=== PATIENT | male | born 1940 | race Caucasian/White ===

== ENCOUNTER 2024-03-05 22:19 | Emergency (ER) | payer MEDICARE, BC, SELFPAY ==
--- NOTE | ~2024-03-05 | XR_ITS ---
EXAM: XR elbow RT min 3V DATE: 03/05/2024 22:41 HISTORY: injury . COMPARISON: None available. FINDINGS: Normal mineralization. No fracture or dislocation. No lytic or blastic lesion. Mild degene rative change at the elbow joint. Enthesopathy at the medial and lateral epicondyles, olecranon, and biceps tuberosity. No erosion or periosteal change. Soft tissues within normal limits. IMPRESSION: No acute osseous finding in the right elbow. Reviewed, dictated and finalized at location K.
--- NOTE | ~2024-03-05 | CT_ITS ---
CT cervical spine wo con Ordering provider: Aminta Edmond APRN History: . fall . Comparison: March 06, 2024 Technique: CT of the cervical spine was performed without contrast. Sagittal and coronal reformatted images were also obtained and reviewed. Automated exposure control and iterative reconstruction margaret hnique were employed. The dose-length product was 681.00 mGy-cm. FINDINGS: VERTEBRAE: No subluxation or acute fracture. The occipital condyles are intact. DISH changes seen an teriorly. DISC SPACES: Normal. Multilevel facet joint disease is seen. Multilevel uncovertebral joint osteoarthritic changes. Multil evel intervertebral foraminal narrowing. PARASPINOUS SOFT TISSUES: Bilateral carotid calcifications. IMPRESSION: No acute osseous abnormality cervical spine. Reviewed, dictated and finalized at location A.
--- NOTE | ~2024-03-05 | CT_ITS ---
CT brain wo con Ordering provider: Aminta Edmond APRN History: 84 years Male with . fell, hit head on counter . Comparison: None. Technique: CT of the head without contrast. Radiation reduction technique utilized.The dose-length product was 681 mGy-cm FINDINGS: BRAIN PARENCHYMA AND CSF SPACES: Mild leukoaraiosis and diffuse cortical atrophy. Mild atheromatous d isease. No midline shift, mass effect or hemorrhage. The brain parenchyma and CSF spaces are otherwi se normal. VISUALIZED PARANASAL SINUSES: Bilateral maxillary sinus. MASTOIDS: Well aerated. BONES: The bones appear intact. SOFT TISSUES: Visualized nasopharynx is normal. Small frontal scalp hematoma. Otherwise, Superficial soft tissues are normal. IMPRESSION: No acute intracranial findings. Reviewed, dictated and finalized at location A.
--- NOTE | ~2024-03-05 | CT_ITS ---
CT lumbar spine wo con Ordering provider: Aminta Edmond APRN History: 84 years Male with . fall . Comparison: None. Technique: CT lumbar spine without contrast. Automated exposure control and iterative reconstruction technique were employed. The dose-length product was 1124.10 mGy-cm. FINDINGS: VERTEBRAE: Normal height and alignment. No subluxation or visible acute fracture. Degenerative change s with anterior marginal osteophytes. DISC SPACES: Well maintained. Multilevel facet joint disease. T12-L1: No stenosis. L1-L2: No stenosis. L2-L3: No stenosis. L3-L4: No stenosis. L4-L5: No stenosis. Diffuse disc bulge with bilateral narrowing of the foramina and the root janeth arturo. L5-S1: No stenosis. Diffuse disc bulge with bilateral narrowing of the foramina or compression. PARASPINOUS SOFT TISSUES: Mild atheromatous disease of the abdominal aorta. Prominent adrenal glands. IMPRESSION: No acute osseous abnormality. Reviewed, dictated and finalized at location A.
--- NOTE | ~2024-03-05 | CT_ITS ---
CT pelvis wo con Ordering provider: Aminta Edmond APRN History: . fall . Comparison: None. Technique: CT pelvis without oral and IV contrast. . Automated exposure control and iterative recons truction technique were employed. The dose-length product was 495.69 mGy-cm. Findings: BONES: No pelvic fracture or hip dislocation. Fusion of the symphysis pubis and right sacroiliac join ts is noted. Bilateral sacroiliitis is seen. Age appropriate degenerative changes of the visualized l ower lumbar spine. Bilateral hip arthroplasty. SUPERFICIAL SOFT TISSUES: Normal. PELVIC ORGANS: The bladder is normal. VISUALIZED BOWEL AND MESENTERY: Normal. No free air or free fluid. No lymphadenopathy. Fecal material loaded in the colon suggestive of constipation. RETROPERITONEUM: Mild atheromatous disease. IMPRESSION: No acute osseous abnormality. Bilateral hip arthroplasty. Reviewed, dictated and finalized at location A.
[2024-03-05 22:22] VITALS: BP 150/61; PULSE 63; RESP 12; TEMP 37; O2SAT 97
[2024-03-05] MEDS: TETANUS,DIPHTHERIA,AC PERTUSSIS ADULT (0.5 ML) BOOSTRIX IM (22:28)
[2024-03-05 23:13] VITALS: BP 142/78; PULSE 61; RESP 14; O2SAT 98
--- NOTE | 2024-03-06 00:33 | ECG_ITS ---
Test Date: 2024-03-06 02:10:49 Measurements Intervals [place] Rate: 61 P: 64 WA: 184 QRS: 6 QRSD: 101 T: 135 QT: 428 QTc: 431 Interpretive Statements SINUS RHYTHM CONSIDER ANTERIOR INFARCT, AGE INDETERMINATE CONSIDER INFERIOR INFARCT, AGE INDETERMINATE ST-T WAVE ABNORMALITY IN LAT/HIGH LAT LEADS- CONSIDER ISCHEMIA BASELINE ARTIFACT- I, III, AVR, AVL ABNORMAL ECG No previous ECG available for comparison Electronically Signed On 03-06-2024 05:26:25 CDT by Jacques Mclean D.O.
--- NOTE | 2024-03-06 00:35 | ED_ITS ---
HPI - Fall General Chief Complaint: Fall <Aminta Edmond APRN - Last Filed: 03/06/24 02:52> Stated Complaint: GLF, RUE SKIN TEAR <Aminta Edmond APRN - Last Filed: 03/06/24 02:52> Time Seen by Provider: 03/05/24 22:22 <Aminta Edmond APRN - Last Filed: 03/06/24 02:52> History of Present Illness HPI Narrative: Patient is an 84-year-old male who was ready to be discharged to EMS that he got without assistance and fell. He was found on the ground by a nurse after hearing a yell out from the patient and supplies hitting the floor. Patient is A&O times 1-2 at baseline, and has no neurological changes after the fall, but he does endorse hitting the left side of his head. He had presents to the ER earlier in the day due to a fall where he injured his right arm. Patient denies chest pain, shortness of breath, but endorses pain on the left side of his head where he hit the counter. <Aminta Edmond APRN - Last Filed: 03/06/24 02:52> Patient is an 84-year-old male who sent here from [facility] after he was witnessed to have fallen from toilet and landed on his right side, per [facility] no loss of consciousness, head trauma. Slight skin tear R elb ow. <Tia Ha MD - Last Filed: 03/06/24 02:49> Related Data Allergies/Adverse Reactions: Allergies Allergy/AdvReac Type Severity Reaction Status Date / Time aspirin Allergy Unknown Verified 03/05/24 22:27 niacin Allergy Unknown Verified 03/05/24 22:27 <Aminta Edmond APRN - Last Filed: 03/06/24 02:52> Review of Systems Review of Systems: All systems reviewed & are unremarkable except as noted in HPI and below <Aminta Edmond APRN - Last Filed: 03/06/24 02:52> Exam Narrative: GENERAL: Distressed appearing, well-nourished, non-toxic. HEAD: Normocephalic, mild L temporal ecchymosis. NECK: Supple. No adenopathy, no masses. RESPIRATORY: Airway patent, respirations nonlabored. Clear to auscultation bilaterally, no rales, rhonchi, wheezing. CARDIOVASCULAR: Regular rate and rhythm without murmurs, rubs, or gallops. Peripheral pulses 2+ and equal bilaterally. ABDOMINAL: Soft, nontender, nondistended, no hepatosplenomegaly. Normoactive BS. MUSCULOSKELETAL: Moves all extremities. Strength/ROM intact without gross deformities. SKIN: Warm, dry, pallor. R upper extremity reddened, mild L temporal ecchymosis NEURO: A&O X1. Speech clear. No ataxic movements. <Aminta Edmond APRN - Last Filed: 03/06/24 02:52> GENERAL: Distressed appearing, well-nourished, non-toxic. HEAD: Normocephalic, mild L temporal ecchymosis. well-healing laceration to top of head NECK: Supple. No adenopathy, no masses. RESPIRATORY: Airway patent, respirations nonlabored. Clear to auscultation bilaterally, no rales, rhonchi, wheezing. CARDIOVASCULAR: Regular rate and rhythm without murmurs, rubs, or gallops. Peripheral pulses 2+ and equal bilaterally. ABDOMINAL: Soft, nontender, nondistended, no hepatosplenomegaly. Normoactive BS. MUSCULOSKELETAL: Moves all extremities. Strength/ROM intact without gross deformities. tiny skin tear right elbow SKIN: Warm, dry, pallor. R upper extremity reddened, mild L temporal ecchymosis, tiny skin tear right elbow NEURO: A&O X1. Speech clear. No ataxic movements. <Tia Ha MD - Last Filed: 03/06/24 02:49> Course Vital Signs Vital signs: Vital Signs Temperature 98.6 F 03/05/24 22:22 Pulse Rate 63 03/05/24 22:22 Respiratory Rate 12 03/05/24 22:22 Blood Pressure 150/61 H 03/05/24 22:22 Pulse Oximetry 97 03/05/24 22:22 Oxygen Delivery Room Air 03/05/24 22:22 Temperature 98.6 F 03/05/24 22:22 Pulse Rate 63 03/06/24 01:40 Respiratory Rate 12 03/06/24 01:40 Blood Pressure 143/54 H 03/06/24 01:40 Pulse Oximetry 97 03/06/24 01:40 Oxygen Delivery Room Air 03/05/24 22:22 <Aminta Edmond APRN - Last Filed: 03/06/24 02:52> Vital Signs Temperature 98.6 F 03/05/24 22:22 Pulse Rate 63 03/05/24 22:22 Respiratory Rate 12 03/05/24 22:22 Blood Pressure 150/61 H 03/05/24 22:22 Pulse Oximetry 97 03/05/24 22:22 Oxygen Delivery Room Air 03/05/24 22:22 Temperature 98.6 F 03/05/24 22:22 Pulse Rate 63 03/06/24 01:40 Respiratory Rate 12 03/06/24 01:40 Blood Pressure 143/54 H 03/06/24 01:40 Pulse Oximetry 97 03/06/24 01:40 Oxygen Delivery Room Air 03/05/24 22:22 <Tia Ha MD - Last Filed: 03/06/24 02:49> MDM - Fall MDM Narrative Medical decision making narrative: Patient is an 84-year-old male who was ready to be discharged to EMS that he got without assistance and fell. He was found on the ground by a nurse after hearing a yell out from the patient and supplies hitting the floor. Patient is A&O times 1-2 at baseline, and has no neurological changes after the fall, but he does endorse hitting the left side of his head. He had presents to the ER earlier in the day due to a fall where he injured his right arm. Patient denies chest pain, shortness of breath, but endorses pain on the left side of his head where he hit the counter. Upon examination patient appears pale. R upper extremity reddened, mild L temporal ecchymosis. No other abnormalities noted Patient reports he hit his head on the counter, so a CT scan of his head, cervical spine, lumbar spine, and pelvis will be performed. Patient's imaging results were all negative for acute findings. He will be discharged back to the [place] [facility] where he lives. <Aminta Edmond APRN - Last Filed: 03/06/24 02:52> Patient is an 84-year-old male presented here after witnessed fall with right elbow injury, was not witnessed to have any head injury. He is well-appearing here with a tiny skin tear on his right elbow that was cleaned and closed with Steri-Strips, tetanus updated. He was ready to be discharged to EMS that he got up without assistance and fell. He was found on the ground by a nurse after hearing a yell out from the patient and saw hitting the floor. Patient is A&O times 1-2 at baseline, and has no neurological changes after the fall, but he does endorse hitting the left side of his head. He had presents to the ER earlier in the day due to a fall where he injured his right arm. Patient denies chest pain, shortness of breath, but endorses pain on the left side of his head where he hit the counter. Upon examination patient appears pale. R upper extremity reddened, mild L temporal ecchymosis. No other abnormalities noted Patient reports he hit his head on the counter, so a CT scan of his head, cervical spine, lumbar spine, and pelvis will be performed. // imaging thankfully without any acute abnormality. Patient continues to be at his baseline and is trying to get up still, I do feel at this time he is stable for discharge back to his [place] [facility] with return precautions. <Tia Ha MD - Last Filed: 03/06/24 02:49> Differential Diagnosis Differential diagnosis: Likely syncope, concussion without loss of consciousness and other (hypoglycemia, hypotension, bradycardia) <Aminta Edmond APRN - Last Filed: 03/06/24 02:52> Discharge Plan Discharge Clinical Impression: Skin tear, Fall <Aminta Edmond APRN - Last Filed: 03/06/24 02:52> Patient Disposition: [facility] <Aminta Edmond APRN - Last Filed: 03/06/24 02:52> Condition: Stable <Aminta Edmond APRN - Last Filed: 03/06/24 02:52> Instructions: Antibiotic Form, Fall Prevention for Older Adults (ED), Skin Tear (ED) <Aminta Edmond APRN - Last Filed: 03/06/24 02:52> Additional Instructions: please follow-up with the primary care doctor, come back to the ER for any further issues. <Aminta Edmond APRN - Last Filed: 03/06/24 02:52> Follow-up/Referrals: Evgeny Boone MD [Primary Care Provider] - <Aminta Edmond APRN - Last Filed: 03/06/24 02:52>
[2024-03-06 01:40] VITALS: BP 143/54; PULSE 63; RESP 12; O2SAT 97
--- NOTE | 2024-03-06 03:08 | PC.NURSE ---
This RN, Yesenia RN, Dickson RN, [facility], [facility] performing ACLS protocol on another patient. Brianda RUSSELL was out at the nurses station to obtain a medication for the patient being coded in room 8 when she hear a noise from room 5. Upon assessment this pt in room 5 was laying on the ground. Pt was helped back into bed by [facility] and Brianda RUSSELL. EDP Aminta Mayito was notified immediately. At the time pt c/o L temporal pain. Pt's mental status did not change after the fall occurred. CT of brain, cervical spine, lumbar spine, and pelvis was ordered and all resulted negative. EKG was ordered and performed as well. Pt's person to notify in his chart, Tito Turner, was called and left a voice message explaining the incident along with a call back number. This information was also relayed to Edith at [facility]. Pt was discharged and transported back to [facility] via [facility].
== END 2024-03-06 03:25 ==
PROVIDERS: Emergency Provider Registered Nurse; PCP Anesthesiology Pain Medicine
DX: S51.011A Laceration without foreign body of right elbow, initial encounter (principal); S00.83XA Contusion of other part of head, initial encounter; Z23 Encounter for immunization; W18.11XA Fall from or off toilet without subsequent striking against object, initial encounter
CPT/HCPCS: 70450; 72125; 72131; 72192; 73080; 90471; 90715; 93005; 99284

== ENCOUNTER 2024-03-11 10:21 | Inpatient (IN) | payer MEDICARE, BC, SELFPAY ==
[2024-03-11] VITALS (38 sets, daily range): BP systolic 107–149; BP diastolic 40–69; PULSE 56–100; RESP 10–24; TEMP 36–36.6; O2SAT 90–100; BMI 23.2
--- NOTE | ~2024-03-11 | CT_ITS ---
CT brain wo con Ordering provider: Vika Cavazos PA-C History: 84 years Male with . fall . Comparison: None. Technique: CT of the head without contrast. Radiation reduction technique utilized. The dose-length product was 1059.33 mGy-cm. FINDINGS: BRAIN PARENCHYMA AND CSF SPACES: Mild leukoaraiosis and diffuse cortical atrophy. Mild atheromatous d isease. No midline shift, mass effect or hemorrhage. The brain parenchyma and CSF spaces are otherwi se normal. VISUALIZED PARANASAL SINUSES: Bilateral maxillary sinus MASTOIDS: Well aerated. BONES: The bones appear intact. SOFT TISSUES: Visualized nasopharynx is normal. Small frontal scalp hematoma otherwise, Superficial soft tissues are normal. IMPRESSION: No acute intracranial findings. Reviewed, dictated and finalized at location A.
--- NOTE | ~2024-03-11 | XR_ITS ---
XR chest 1V Ordering provider: Vika Cavazos PA-C History: 84 years Male with . fall . Comparison: None. FINDINGS: MEDIASTINUM: The cardiac silhouette is not enlarged. LUNGS: No effusions or pneumothorax. Opacification in the left lower lobe area. OTHER: No free air under the diaphragm. IMPRESSION: Opacification in the left lower lobe area suggestive of atelectasis versus pneumonia. Reviewed, dictated and finalized at location A. IMPRESSION: Opacification in the left lower lobe area suggestive of atelectasis versus pneu monia.
--- NOTE | ~2024-03-11 | CT_ITS ---
CT cervical spine wo con Ordering provider: Vika Cavazos PA-C History: . fall . Comparison: None. Technique: CT of the cervical spine was performed without contrast. Sagittal and coronal reformatted images were also obtained and reviewed. Automated exposure control and iterative reconstruction margaret hnique were employed. The dose-length product was 438.83 mGy-cm. FINDINGS: VERTEBRAE: No subluxation or acute fracture. The occipital condyles are intact. Prominent osteophytes seen anteriorly suggestive of DISH. DISC SPACES: Normal. Multilevel facet joint disease. Multilevel intervertebral foraminal narrowing. PARASPINOUS SOFT TISSUES: Bilateral carotid calcifications. IMPRESSION: No acute osseous abnormality cervical spine. Reviewed, dictated and finalized at location A.
--- NOTE | ~2024-03-11 | XR_ITS ---
SINGLE AP VIEW PELVIS Ordering provider: Vika Cavazos PA-C History: . PAIN AFTER FALL . Comparison: None. FINDINGS: BONES: No acute fracture or dislocation. HIP JOINT SPACES: Bilateral total hip arthroplasty. SACROILIAC JOINT SPACES/LUMBAR SPINE: The sacroiliac joint spaces shows left sacroiliitis. . Mild degenerative changes of the visualized lower lumbar spine. PUBIC SYMPHYSIS: Normal. SOFT TISSUES: Normal. IMPRESSION: No acute osseous abnormality pelvis. Bilateral total hip arthroplasty. Reviewed, dictated and finalized at location A.
--- NOTE | 2024-03-11 10:50 | ED.FALL ---
HPI - Fall General Chief Complaint: Fall Stated Complaint: Fall Time Seen by Provider: 03/11/24 10:26 Source: patient and EMS Mode of arrival: EMS Limitations: dementia History of Present Illness HPI Narrative: This is a 84 year old male that presents to the ER for a fall today. Reports he is currently in the memory care unit and they are trying to change him to the long-term side as he has been falling a lot. Patient has no complaints currently. Uncooperative with history and exam. Related Data Home Medications Medication Instructions Recorded Confirmed acetaminophen 500 mg tablet 500 mg PO TID PRN Pain 03/11/24 03/11/24 amlodipine 5 mg tablet 5 mg PO DAILY 03/11/24 03/11/24 divalproex 125 mg tablet,delayed 125 mg PO BID 03/11/24 03/11/24 release donepezil 10 mg tablet 10 mg PO DAILY 03/11/24 03/11/24 escitalopram oxalate 10 mg tablet 10 mg PO DAILY 03/11/24 03/11/24 furosemide 40 mg tablet 40 mg PO DAILY 03/11/24 03/11/24 levothyroxine 75 mcg tablet 75 mcg PO DAILY 03/11/24 03/11/24 loperamide 2 mg capsule 2 mg PO DAILY PRN Diarrhea 03/11/24 03/11/24 menthol 0.44 %-zinc oxide 20.6 % 1 applic topical BID PRN Rash 03/11/24 03/11/24 topical ointment (CalProtect) metolazone 2.5 mg tablet 2.5 mg PO DAILY 03/11/24 03/11/24 omeprazole 40 mg capsule,delayed 40 mg PO DAILY 03/11/24 03/11/24 release polyethylene glycol 3350 17 17 g PO DAILY PRN Constipation 03/11/24 03/11/24 gram/dose oral powder quetiapine 50 mg tablet 50 mg PO TID 03/11/24 03/11/24 tamsulosin 0.4 mg capsule 0.4 mg PO QHS 03/11/24 03/11/24 triamcinolone acetonide 0.1 % 1 applic topical BID 03/11/24 03/11/24 topical cream Allergies Allergy/AdvReac Type Severity Reaction Status Date / Time aspirin Allergy Unknown Verified 03/11/24 10:39 niacin Allergy Unknown Verified 03/11/24 10:39 Review of Systems Review of Systems: ROS unobtainable: Yes unobtainable due to medical condition PMFSH Past Medical History Medical History (Updated 03/12/24 @ 10:23 by Vika Cavazos PA-C) Bipolar disorder Cataracts, bilateral History of dementia History of hypertension History of hypothyroidism TIA (transient ischemic attack) Surgical History Surgical History (Updated 03/11/24 @ 17:23 by Vanessa Nelson, TAM) History of angioplasty (1993) History of total hip arthroplasty Social History Social History (Updated 03/11/24 @ 10:51 by Vika Cavazos PA-C) Smoking status: Never smoker Alcohol intake: former Substance use: never Spiritual care concerns: No Exam Narrative: GENERAL: Elderly, well-nourished, and in no acute distress. HEAD: Normocephalic, atraumatic. EYES: PERRLA and EOMI. ENT: Nares clear, no rhinorrhea or epistaxis. Mucous membranes moist. Oropharynx without tonsillar hypertrophy exudate or other lesions. Bilateral TMs pearly liz non-bulging NECK: Supple. No adenopathy or masses. CHEST: Clear to auscultation. No respiratory distress. No wheezes rales or rhonchi HEART: Regular rate and rhythm. No murmur heard. Normal peripheral pulses. ABDOMEN: Soft, nontender, nondistended, normal active bowel sounds. BACK: No midline spinal tenderness EXTREMITIES: Normal range of motion. No edema or obvious deformity. SKIN: Warm, dry, no rash. NEURO: No focal deficits. Alert and oriented x1. PSYCH: Normal mood and affect Course Course Emergency Course: Spoke about further inpatient management for hydration and IV antibiotics for pneumonia versus is discharged back to facility with oral antibiotics. Consultations Consultation #1: Spoke with hospitalist about patient and workup who accepts admission Date: 03/11/24 Vital Signs Vital signs: Vital Signs Temperature 97.9 F 03/11/24 10:26 Pulse Rate 62 03/11/24 10:26 Respiratory Rate 14 03/11/24 10:26 Blood Pressure 149/58 H 03/11/24 10:26 Pulse Oximetry 97 03/11/24 10:26 Oxygen Delivery Room Air 03/11/24 10:26 Temperature 97.5 F L 03/12/24
[2024-03-11 12:40] LABS: Basophils Absolute Auto 0.1 K/mm3 (0.0-0.1); Basophils Percent Auto 0.6 % (0.2-1.2); Eosinophils Absolute Auto 0.1 K/mm3 (0-0.3); Eosinophils Percent Auto 1.1 % (0-4.4); Hematocrit 39.8 % (42.0-52.0); Hemoglobin 13.2 g/dL (14.0-18.0); Immature Granulocyte Absolute 0.05 K/mm3 (0.00-0.031); Immature Granulocyte Percent A 0.6 % (0-0.5); Lymphocytes Absolute Auto 1.69 K/mm3 (0.9-3.2); Lymphocytes Percent Auto 19.8 % (18.3-44.2); Mean Corpuscular HGB Conc 33.2 g/dl (32-36); Mean Corpuscular Hemoglobin 32.1 pg (26-34); Mean Corpuscular Volume 96.8 fl (80-100); Mean Platelet Volume 9.7 fl (7.4-10.4); Monocytes Absolute Auto 0.8 K/mm3 (0.1-0.6); Neutrophils Absolute Auto 5.9 K/mm3 (1.3-6.7); Neutrophils Percent Auto 68.9 % (45.5-73.1); Platelet Count Result 240 k/mm3 (150-375); Red Blood Count 4.11 M/mm3 (4.6-6.20); Red Cell Distribution Width 13.9 % (11.5-14.5); White Blood Count 8.5 K/mm3 (4.5-10.0)
[2024-03-11 12:51] LABS: Alanine Aminotransferase 21 U/L (6-50); Albumin Level 4.1 g/dL (3.5-5.1); Alkaline Phosphatase 170 U/L (38-126); Aspartate Amino Transferase 30 U/L (17-59); Bilirubin,Total 0.5 mg/dL (0.2-1.3); Blood Urea Nitrogen 43 mg/dL (9-20); Calcium 8.6 mg/dL (8.4-10.2); Carbon Dioxide > 40 mmol/L (22-30); Chloride 96 mmol/L (98-107); Estimated CRCL calculation 29 ml/min; Estimated Glomerular Filt Rate 38; Glucose 113 mg/dL (65-110); Potassium 3.6 mmol/L (3.4-5.0); Sodium 141 mmol/L (137-145)
--- NOTE | 2024-03-11 13:49 | PM.IMHP ---
H&P: HPI History of Present Illness Date/Time: 03/11/24 13:49 Chief Complaint: Fall Narrative: 84 y/o M presents here with fall with PMH of dementia, bipolar disorder, TIA, HTN, and hypothyroidism. The patient presents here from [facility] via EMS for further evaluation of falls. HPI obtained through chart review and patient report. Per EMS, custodial staff reported the patient has been falling more recently. reports the falls have worsened over the last month. Estimates he falls a few times per week, with most at 2 times in one day. Most recent fall occurred today, patient does not remember fall and does not know details. skilled nursing staff reports concerns about his current placement in the memory care unit, believes he may need a penitentiary facility due to the frequency of falls. The patient has a history of dementia and is currently A&Ox1 (self, typically knows his and children but otherwise confused, considered final stages/advanced per ), currently unable to provide reliable history. also reports that he has had visual hallucinations for the last 2 weeks, historically hallucinates with UTIs. UA was done at his [place] but the results have not been reviewed yet per . No reported nausea, vomiting, diarrhea or constipation. Initial VS at presentation: 97.9? F, HR 62, RR 14, 149/58, and 97% on RA. ED workup showed: No leukocytosis, hemoglobin 13.2, CO2 greater than 40, creatinine 1.7 and GFR 38 (no previous available for comparison), glucose 113. Head CT showed no acute intracranial findings. CT C-spine showed no acute osseous abnormality of the cervical spine. CXR showed opacification the left lower lobe suggestive of atelectasis versus pneumonia. Pelvic XR showed no acute osseous abnormality and bilateral total hip arthroplasties. Review of Systems Review of Systems: ROS unobtainable: Yes unobtainable due to mental status (Limited due to severe dementia) [facility] Past Medical History Medical History (Updated 03/11/24 @ 17:23 by Vanessa Nelson APRN) Bipolar disorder Cataracts, bilateral History of dementia History of hypertension History of hypothyroidism TIA (transient ischemic attack) Surgical History Surgical History (Updated 03/11/24 @ 17:23 by Vanessa Nelson APRN) History of angioplasty (1993) History of total hip arthroplasty Social History Social History (Updated 03/11/24 @ 10:51 by Vika Cavazos PA-C) Smoking status: Never smoker Alcohol intake: former Substance use: never Spiritual care concerns: No Meds Home Medications and Allergies Home Medications Medication Instructions Recorded Confirmed Type acetaminophen 500 mg tablet 500 mg PO TID PRN Pain 03/11/24 03/11/24 History amlodipine 5 mg tablet 5 mg PO DAILY 03/11/24 03/11/24 History divalproex 125 mg tablet,delayed 125 mg PO BID 03/11/24 03/11/24 History release donepezil 10 mg tablet 10 mg PO DAILY 03/11/24 03/11/24 History escitalopram oxalate 10 mg tablet 10 mg PO DAILY 03/11/24 03/11/24 History furosemide 40 mg tablet 40 mg PO DAILY 03/11/24 03/11/24 History levothyroxine 75 mcg tablet 75 mcg PO DAILY 03/11/24 03/11/24 History loperamide 2 mg capsule 2 mg PO DAILY PRN Diarrhea 03/11/24 03/11/24 History menthol 0.44 %-zinc oxide 20.6 % 1 applic topical BID PRN Rash 03/11/24 03/11/24 History topical ointment (CalProtect) metolazone 2.5 mg tablet 2.5 mg PO DAILY 03/11/24 03/11/24 History omeprazole 40 mg capsule,delayed 40 mg PO DAILY 03/11/24 03/11/24 History release polyethylene glycol 3350 17 17 g PO DAILY PRN Constipation 03/11/24 03/11/24 History gram/dose oral powder quetiapine 50 mg tablet 50 mg PO TID 03/11/24 03/11/24 History tamsulosin 0.4 mg capsule 0.4 mg PO QHS 03/11/24 03/11/24 History triamcinolone acetonide 0.1 % 1 applic topical BID 03/11/24 03/11/24 History topical cream Allergies Allergy/AdvReac Type Severity Reaction S
[2024-03-11] MEDS: SODIUM CHLORIDE 0.9% IV 500 ML 999 ML IV CONT (14:13)
[2024-03-11] MEDS: AZITHROMYCIN 500 MG/NS 250 ML 500 MG/250 ML BAG 250 MG IVPB ×2 (14:14→15:18)
[2024-03-11] MEDS: IPRATROPIUM 0.5 MG/ALBUTEROL SULFATE 2.5 MG AMPUL.NEB 3 ML INHALATION ×2 (14:41→20:27)
[2024-03-11 15:22] LABS: Influenza A QL RT-PCR Negative (Negative); Influenza B QL RT-PCR Negative (Negative); RSV RNA, RT-PCR Negative (Negative); SARS-CoV-2 RNA PCR Negative (Negative)
--- NOTE | 2024-03-11 15:28 | ADMGEN ---
This patient, Thom Turner, was admitted to Medical Room 254-01. Patient/family oriented to hospital policies and general routines including ID bracelet, bed and alarms, visiting hours, pain management, procedures, bathroom and other care routines, personal items, smoking policy, room service/diet, and visiting hours. Information on how to activate the Rapid Response Team has been discussed. Patient/Family are encouraged to report perceived risks to care and to ask questions if they do not understand what they are told or what they should do.
[2024-03-11 16:02] LABS: MRSA (PCR) NOT DETECTED (NOT DETECTE)
[2024-03-11 20:50] LABS: Glucose Point of Care 124 mg/dl (65-105)
[2024-03-11] MEDS: TAMSULOSIN HCL 0.4 MG CAPSULE PO (21:56)
[2024-03-11] MEDS: DIVALPROEX SODIUM DR 125 MG TABEC PO (21:56)
[2024-03-11] MEDS: guaiFENesin 12 HR 600 MG TABCR PO (21:56)
[2024-03-11] MEDS: PANTOPRAZOLE 40 MG TABLET PO (21:57)
[2024-03-11] MEDS: SODIUM CHLORIDE 0.9% IV 1,000 ML 100 ML IV CONT (21:57)
[2024-03-11] MEDS: TRIAMCINOLONE ACET 0.1% CREAM 15 GM TUBE 1 APPLIC TOPICAL (21:58)
[2024-03-12] VITALS (14 sets, daily range): BP systolic 117–148; BP diastolic 47–79; PULSE 62–88; RESP 16–20; TEMP 36.2–36.6; O2SAT 94–98
[2024-03-12] MEDS: IPRATROPIUM 0.5 MG/ALBUTEROL SULFATE 2.5 MG AMPUL.NEB 3 ML INHALATION ×4 (02:18→20:42)
[2024-03-12] MEDS: LEVOTHYROXINE SODIUM 75 MCG TABLET PO (05:49)
[2024-03-12 05:51] LABS: Basophils Percent Auto 0.5 % (0.2-1.2); Eosinophils Absolute Auto 0.1 K/mm3 (0-0.3); Eosinophils Percent Auto 1.1 % (0-4.4); Hematocrit 37.1 % (42.0-52.0); Immature Granulocyte Absolute 0.06 K/mm3 (0.00-0.031); Immature Granulocyte Percent A 0.8 % (0-0.5); Lymphocytes Absolute Auto 1.95 K/mm3 (0.9-3.2); Lymphocytes Percent Auto 25.8 % (18.3-44.2); Mean Corpuscular HGB Conc 32.3 g/dl (32-36); Mean Corpuscular Hemoglobin 32.2 pg (26-34); Mean Corpuscular Volume 99.5 fl (80-100); Mean Platelet Volume 9.1 fl (7.4-10.4); Monocytes Absolute Auto 0.6 K/mm3 (0.1-0.6); Monocytes Percent Auto 7.8 % (2.6-8.5); Neutrophils Absolute Auto 4.8 K/mm3 (1.3-6.7); Platelet Count Result 214 k/mm3 (150-375); Red Blood Count 3.73 M/mm3 (4.6-6.20); Red Cell Distribution Width 14.1 % (11.5-14.5); White Blood Count 7.6 K/mm3 (4.5-10.0)
[2024-03-12 06:22] LABS: Alanine Aminotransferase 18 U/L (6-50); Albumin Level 3.8 g/dL (3.5-5.1); Alkaline Phosphatase 150 U/L (38-126); Anion Gap 11 mmol/L (4-12); Aspartate Amino Transferase 28 U/L (17-59); Bilirubin,Total 0.5 mg/dL (0.2-1.3); Blood Urea Nitrogen 29 mg/dL (9-20); Calcium 8.1 mg/dL (8.4-10.2); Carbon Dioxide 32 mmol/L (22-30); Chloride 99 mmol/L (98-107); Estimated CRCL calculation 33 ml/min; Estimated Glomerular Filt Rate 44; Glucose 112 mg/dL (65-110); Sodium 142 mmol/L (137-145)
--- NOTE | 2024-03-12 07:14 | PM.IMPN ---
Progress Note: A&P Assessment and Plan (1) Frequent falls: Code(s): R29.6 - Repeated falls Status: Acute Assessment and Plan: - trauma workup negative for acute findings including head CT, C-spine CT, CXR, and pelvic XR - fall precautions - care coordination consulted for SNF placement - PT/OT eval and treat. Patient was unable to work with PT due to his profound confusion. Unable to follow direction. - may have worsening falls related to incidental pneumonia found on CXR, started on antibiotics - UA added stat as it was never collected in the ED - TSH normal (2) Pneumonia: Qualifiers: Laterality: left Lung location: lower lobe of lung Pneumonia type: due to unspecified organism Qualified Code(s): J18.9 - Pneumonia, unspecified organism Code(s): J18.9 - Pneumonia, unspecified organism Status: Suspected Assessment and Plan: - did not meet SIRS criteria - CXR: left lower lobe opacification (atelectasis v pneumonia) - risk factors and complicating factors: [facility] resident - started on CAP tx: ceftriaxone and azithromycin on 03/11 - MRSA PCR, viral PCR negative, and sputum culture (if obtainable) - no current supplemental O2 requirement - supportive care (3) ANNEMARIE (acute kidney injury): Code(s): N17.9 - Acute kidney failure, unspecified Status: Suspected Assessment and Plan: - creatinine 1.7 and GFR 38, no previous available for comparison - Cr improved with IV fluids. Will see how he does today with eating and drinking. - patient appears dry on exam, start IV fluids - trend renal function - trend electrolytes, correct as needed (4) HTN (hypertension): Qualifiers: Hypertension type: primary hypertension Qualified Code(s): I10 - Essential (primary) hypertension Code(s): I10 - Essential (primary) hypertension Status: Chronic Assessment and Plan: - chronic, currently 142/50 - continue home medications: Amlodipine 5 mg daily - monitor Plan Diet: Heart healthy GI Prophylaxis: Not currently indicated DVT Prophylaxis: SCDs Lines: Peripheral Code Status: DNR Subjective Date/time seen: 03/12/24 07:14 Interval history: No acute events overnight. Patient is difficult to complete ROS given his advanced dementia. He is being treated for pneumonia. His and family are at the bedside and feel that he is more confused than his baseline. Review of Systems Review of Systems: ROS unobtainable: Yes unobtainable due to mental status (Limited due to severe dementia) Exam Narrative: General: appears comfortable, in no acute distress Respiratory: breathing is unlabored with even chest rise/fall, lungs are clear without wheezing, rhonchi, and crackles Cardiovascular: Rate and rhythm regular, normal s1s2, no murmur Abdomen: Soft, round, non-tender, active bowel sounds Extremities: No cyanosis, edema, clubbing. Pulses 2/2 Neuro: A&O x 0. Patient unable to tell me hjs name. Skin: Warm, dry, intact. Multiple scattered abrasions and bruising. Healed laceration to his forehead. Objective Data Vital Signs Vital Signs: Vital Signs - 24 hr 03/11/24 10:26 03/11/24 10:32 03/11/24 10:45 Temperature 97.9 F Pulse Rate 62 65 71 Respiratory Rate 14 14 24 H Blood Pressure 149/58 H Pulse Oximetry 97 99 99 Oxygen Delivery Room Air 03/11/24 11:00 03/11/24 11:26 03/11/24 11:30 Temperature Pulse Rate 59 L 60 Respiratory Rate 10 L 16 12 Blood Pressure Pulse Oximetry 97 98 100 Oxygen Delivery 03/11/24 11:45 03/11/24 12:00 03/11/24 12:15 Temperature Pulse Rate 58 L 59 L 61 Respiratory Rate 14 12 14 Blood Pressure Pulse Oximetry 98 100 Oxygen Delivery 03/11/24 12:25 03/11/24 12:30 03/11/24 12:31 Temperature Pulse Rate 100 61 61 Respiratory Rate 21 H 16 14 Blood Pressure 128/60 149/61 H Pulse Oximetry 98 100 Oxygen Delivery 03/11/24 12:45 03/11/24 12:
[2024-03-12] MEDS: DIVALPROEX SODIUM DR 125 MG TABEC PO ×2 (08:53→21:14)
[2024-03-12] MEDS: amLODIPine BESYLATE 5 MG TABLET PO (08:53)
[2024-03-12] MEDS: PANTOPRAZOLE 40 MG TABLET PO ×2 (08:53→21:14)
[2024-03-12] MEDS: FUROSEMIDE 40 MG TABLET PO (08:53)
[2024-03-12] MEDS: ESCITALOPRAM OXALATE 10 MG TABLET PO (08:53)
[2024-03-12] MEDS: TRIAMCINOLONE ACET 0.1% CREAM 15 GM TUBE 1 APPLIC TOPICAL (08:54)
[2024-03-12] MEDS: DONEPEZIL HCL 10 MG TABLET PO (08:54)
[2024-03-12] MEDS: QUEtiapine FUMARATE 25 MG TABLET 50 MG PO ×3 (08:54→16:25)
[2024-03-12] MEDS: guaiFENesin 12 HR 600 MG TABCR PO ×2 (08:54→21:14)
[2024-03-12] MEDS: metOLazone 2.5 MG TABLET PO (08:54)
--- NOTE | 2024-03-12 10:37 | PCWOUND ---
WOCN NOTE Spoke with patient's day RN, Polly. States patient does have some yeast maceration in the groin area. Will place orders for our Clear Antifungal barrier cream to be applied every 12 hours. Will stop the med clarification for Barber-protect and Triamcinolone cream as the Barber-protect is a product not used at this facility. Triamcinolone cream not needed as antifungal barrier cream will treat yeast, irritation and inflammation of the skin.
[2024-03-12] MEDS: TAMSULOSIN HCL 0.4 MG CAPSULE PO (21:14)
[2024-03-12 21:38] LABS: Add Urine Microscopic? YES; Appearance Urine Clear (Clear); Bacteria Urine None Seen /hpf; Bilirubin Urine Negative (Negative); Blood Urine Negative (Negative); Color Urine Yellow (Yellow); Glucose Urine UA Negative (Negative); Ketones Urine Negative (Negative); Leukocyte Esterase Ur Trace LEU/UL (Negative); Nitrate Urine Negative (Negative); Non Pathogenic Casts 0-2; Protein Urine Negative (Negative); RBC Urine 0-2 /hpf (0-2); Specific Grav Ur 1.014 (1.001-1.035); Squamous Epithelial Cell Urine None Seen /hpf (Few); WBC Urine 0-5 /hpf (0-3); pH Urine 6.5 (5.0-9.0)
[2024-03-13] VITALS (9 sets, daily range): BP systolic 127–149; BP diastolic 52–91; PULSE 64–81; RESP 16–18; TEMP 36.1–36.6; O2SAT 96–98
[2024-03-13] MEDS: IPRATROPIUM 0.5 MG/ALBUTEROL SULFATE 2.5 MG AMPUL.NEB 3 ML INHALATION ×3 (01:16→14:39)
[2024-03-13] MEDS: LEVOTHYROXINE SODIUM 75 MCG TABLET PO (06:09)
[2024-03-13] MEDS: AZITHROMYCIN 500 MG/NS 250 ML 500 MG/250 ML BAG 250 MG IVPB (08:11)
[2024-03-13] MEDS: ESCITALOPRAM OXALATE 10 MG TABLET PO (09:26)
[2024-03-13] MEDS: guaiFENesin 12 HR 600 MG TABCR PO (09:26)
[2024-03-13] MEDS: metOLazone 2.5 MG TABLET PO (09:26)
[2024-03-13] MEDS: PANTOPRAZOLE 40 MG TABLET PO (09:26)
[2024-03-13] MEDS: DIVALPROEX SODIUM DR 125 MG TABEC PO (09:26)
[2024-03-13] MEDS: DONEPEZIL HCL 10 MG TABLET PO (09:26)
[2024-03-13] MEDS: FUROSEMIDE 40 MG TABLET PO (09:26)
[2024-03-13] MEDS: amLODIPine BESYLATE 5 MG TABLET PO (09:27)
[2024-03-13] MEDS: QUEtiapine FUMARATE 25 MG TABLET 50 MG PO ×3 (09:27→17:14)
[2024-03-13 09:31] LABS: Basophils Absolute Auto 0.1 K/mm3 (0.0-0.1); Basophils Percent Auto 0.9 % (0.2-1.2); Eosinophils Absolute Auto 0.1 K/mm3 (0-0.3); Eosinophils Percent Auto 1.4 % (0-4.4); Hematocrit 39.7 % (42.0-52.0); Hemoglobin 13.2 g/dL (14.0-18.0); Immature Granulocyte Absolute 0.04 K/mm3 (0.00-0.031); Immature Granulocyte Percent A 0.7 % (0-0.5); Lymphocytes Absolute Auto 1.15 K/mm3 (0.9-3.2); Lymphocytes Percent Auto 19.7 % (18.3-44.2); Mean Corpuscular HGB Conc 33.2 g/dl (32-36); Mean Corpuscular Hemoglobin 32.4 pg (26-34); Mean Corpuscular Volume 97.5 fl (80-100); Mean Platelet Volume 9.3 fl (7.4-10.4); Monocytes Absolute Auto 0.3 K/mm3 (0.1-0.6); Monocytes Percent Auto 5.8 % (2.6-8.5); Neutrophils Absolute Auto 4.2 K/mm3 (1.3-6.7); Neutrophils Percent Auto 71.5 % (45.5-73.1); Platelet Count Result 215 k/mm3 (150-375); Red Blood Count 4.07 M/mm3 (4.6-6.20); Red Cell Distribution Width 13.8 % (11.5-14.5); White Blood Count 5.9 K/mm3 (4.5-10.0)
[2024-03-13 10:01] LABS: Alanine Aminotransferase 18 U/L (6-50); Albumin Level 4.1 g/dL (3.5-5.1); Alkaline Phosphatase 164 U/L (38-126); Anion Gap 11 mmol/L (4-12); Aspartate Amino Transferase 33 U/L (17-59); Bilirubin,Total 0.8 mg/dL (0.2-1.3); Blood Urea Nitrogen 20 mg/dL (9-20); Calcium 8.4 mg/dL (8.4-10.2); Carbon Dioxide 26 mmol/L (22-30); Chloride 96 mmol/L (98-107); Estimated CRCL calculation 41 ml/min; Estimated Glomerular Filt Rate 57; Glucose 138 mg/dL (65-110); Potassium 3.8 mmol/L (3.4-5.0); Sodium 133 mmol/L (137-145)
--- NOTE | 2024-03-13 16:12 | PM.DS ---
DS: Admitting Diagnosis Discharge Date 03/13 Admitting Diagnosis falls DS: Discharge Diagnosis Discharge Diagnosis (1) Frequent falls: Code(s): R29.6 - Repeated falls Status: Acute Assessment and Plan: - trauma workup negative for acute findings including head CT, C-spine CT, CXR, and pelvic XR - fall precautions - care coordination consulted for SNF placement - PT/OT eval and treat. Patient was unable to work with PT due to his profound confusion. Unable to follow direction. - may have worsening falls related to incidental pneumonia found on CXR, started on antibiotics - UA added stat as it was never collected in the ED - TSH normal (2) Pneumonia: Qualifiers: Pneumonia type: due to unspecified organism Laterality: left Lung location: lower lobe of lung Qualified Code(s): J18.9 - Pneumonia, unspecified organism Code(s): J18.9 - Pneumonia, unspecified organism Status: Suspected Assessment and Plan: - did not meet SIRS criteria - CXR: left lower lobe opacification (atelectasis v pneumonia) - risk factors and complicating factors: [place] - started on CAP tx: ceftriaxone and azithromycin on 03/11 - MRSA PCR, viral PCR negative, and sputum culture (if obtainable) - no current supplemental O2 requirement - supportive care (3) ANNEMARIE (acute kidney injury): Code(s): N17.9 - Acute kidney failure, unspecified Status: Suspected Assessment and Plan: - creatinine 1.7 and GFR 38, no previous available for comparison - Cr improved with IV fluids. Will see how he does today with eating and drinking. - patient appears dry on exam, start IV fluids - trend renal function - trend electrolytes, correct as needed (4) HTN (hypertension): Qualifiers: Hypertension type: primary hypertension Qualified Code(s): I10 - Essential (primary) hypertension Code(s): I10 - Essential (primary) hypertension Status: Chronic Assessment and Plan: - chronic, currently 142/50 - continue home medications: Amlodipine 5 mg daily - monitor Plan Diet: Heart healthy GI Prophylaxis: Not currently indicated DVT Prophylaxis: SCDs Lines: Peripheral Code Status: DNR DS: Summary Hospital Course Reason for hospitalization: fall, pneumonia Hospital Course: 84 y/o M presents here with fall with PMH of dementia, bipolar disorder, TIA, HTN, and hypothyroidism. The patient presents here from [facility] via EMS for further evaluation of falls. HPI obtained through chart review and patient report. Per EMS, alf staff reported the patient has been falling more recently. reports the falls have worsened over the last month. Estimates he falls a few times per week, with most at 2 times in one day. Most recent fall occurred today, patient does not remember fall and does not know details. long-term staff reports concerns about his current placement in the memory care unit, believes he may need a prison facility due to the frequency of falls. The patient has a history of dementia and is currently A&Ox1 (self, typically knows his and children but otherwise confused, considered final stages/advanced per ), currently unable to provide reliable history. also reports that he has had visual hallucinations for the last 2 weeks, historically hallucinates with UTIs. UA was done at his NH but the results have not been reviewed yet per . No reported nausea, vomiting, diarrhea or constipation. Initial VS at presentation: 97.9? F, HR 62, RR 14, 149/58, and 97% on RA. ED workup showed: No leukocytosis, hemoglobin 13.2, CO2 greater than 40, creatinine 1.7 and GFR 38 (no previous available for comparison), glucose 113. Head CT showed no acute intracranial findings. CT C-spine showed no acute osseous abnormality of the cervical spine. CXR showed opacification the left lower lobe suggestive of
== END 2024-03-13 18:20 | DRG 194 ==
LOC: ANHED 10:51 → ANH2MED 14:46
PROVIDERS: Student in an Organized Health Care Education/Training Program; Admitting Provider Internal Medicine; Emergency Provider Physician Assistant; PCP Internal Medicine; Visit Provider Nurse Practitioner Acute Care
DX: J18.9 Pneumonia, unspecified organism (principal); N17.9 Acute kidney failure, unspecified; I10 Essential (primary) hypertension; E03.9 Hypothyroidism, unspecified; F03.90 Unspecified dementia, unspecified severity, without behavioral disturbance, psychotic disturbance, mood disturbance, and anxiety; F31.9 Bipolar disorder, unspecified; R29.6 Repeated falls; Z66 Do not resuscitate; Z96.643 Presence of artificial hip joint, bilateral; Z86.73 Personal history of transient ischemic attack (TIA), and cerebral infarction without residual deficits
CPT/HCPCS: 15853; 36415; 70450; 71045; 72125; 72170; 80053; 81001; 82948; 84443; 85025; 87637; 87641; 94640; 96365; 96375; 96376; 97161; 97165; 97530; 97535; 99285; A9270; G0378; J0456; J0696; J7030; J7040

== ENCOUNTER 2024-08-28 19:26 | Emergency (ER) | payer MEDICARE, BC, SELFPAY ==
--- NOTE | ~2024-08-28 | CT_ITS ---
CLINICAL INDICATION: Fall COMPARISON: 03/06/2024 (lumbar spine). TECHNIQUE: Multiple contiguous axial images of the chest, abdomen, pelvis, thoracic and lumbar spines were performed without the administration of intravenous contrast The dose-length product (DLP) was 1017.85 mGy-cm. Automated exposure control and iterative reconstruction technique were employed. FINDINGS/OBSERVATIONS: LUNG:Biapical scarring with calcified pleural plaques. Bibasilar atelectasis, left greater than right. The remainder of the lungs are otherwise clear. No contusion, pneumothorax or hemothorax. MEDIASTINUM: Limited evaluation without intravenous contrast. HEART: The heart is enlarged, without pericardial effusion. SOFT TISSUES OF THE CHEST: Unremarkable. Liver: The liver demonstrates homogeneous attenuation and is not enlarged measuring 18 cm in longitudinal di mension. No perihepatic fluid to suggest acute traumatic injury. Gallbladder and biliary system: The gallbladder is surgically absent. Pancreas: Limited evaluation of the pancreas secondary to the lack of intravenous contrast. No peripancreatic fluid is identified to suggest acute traumatic injury. Spleen: The spleen demonstrates homogeneous attenuation and is not enlarged measuring 10 cm in longitudinal d imension. No perisplenic fluid is identified to suggest acute traumatic injury. Kidneys: The bilateral kidneys are unremarkable, without hydronephrosis or renal calculi. No perirenal fluid is identified to suggest acute traumatic injury. Adrenal glands: Unremarkable. Gastrointestinal tract: Fecal stasis distending the rectum with mural thickening and surrounding inflammatory change, finding s suggestive of fecal impaction. No free fluid within the abdomen or pelvis. Vasculature: Densely calcified atherosclerotic disease Lymph nodes: Limited evaluation without intravenous contrast. Pelvic structures: The bladder is distended and demonstrates thickened gillespie. Further evaluation of the deep pelvis is limited secondary to streak metallic artifact from the patie nt's bilateral hip prostheses Body wall and musculoskeletal: No umbilical hernia. Degenerative disease is identified with osteophyte formation, disc space narrowing, endplate changes and facet arthropathy. There are bridging endplate osteophytes at multiple levels in the lumbar and thoracic spines, consist ent with diffuse idiopathic skeletal hyperostosis (DISH). No acute fracture within the thoracic or lumbar spine. No acute rib fractures. No acute sternal fracture. IMPRESSION: Findings suggesting fecal impaction. No cross-sectional imaging evidence of acute traumatic injury, as detailed above. Reviewed, dictated and finalized at location A. IMPRESSION: Findings suggesting fecal impaction. No cross-sectional imaging evidence of acute traumatic injury, as detailed sangeeta avery
--- NOTE | ~2024-08-28 | CT_ITS ---
History: Frequent falls PROCEDURE: CT head without contrast. COMPARISON: None TECHNIQUE: Axial imaging of the head performed from the skull base to the vertex without IV contrast. Sagittal a nd coronal reformations obtained. DLP: mGy-cm FINDINGS: The ventricles are enlarged. The dilatation of the ventricles is proportional to the degree of sulcal prominence, not uncommon in the senescent brain. Decreased attenuation is identified within the periventricular white matter, likely secondary to micr ovascular ischemic disease, in a patient of this age. There is no mass, mass effect or midline shift. There is no abnormal extra-axial fluid collection or intracranial hemorrhage. Air-fluid level within the right sphenoid sinus, an interval change from prior. Remaining paranasal sinuses are unremarkable. The mastoid air cells are well aerated. No acute displaced fractures within the overlying cranium. Impression: No acute intracranial hemorrhage or suspicious mass effect. Inflammatory sinus disease Reviewed, dictated and finalized at location A. Impression: No acute intracranial hemorrhage or suspicious mass effect. Inflammatory sinus disease
--- NOTE | ~2024-08-28 | CT_ITS ---
History: Fall PROCEDURE: CT cervical spine without intravenous contrast. COMPARISON: 03/11/2024 TECHNIQUE: Multiple contiguous axial images of the cervical spine were performed without the administration of i ntravenous contrast. DLP: 492 mGy-cm FINDINGS: Significant degenerative disease is identified. There are bridging endplate osteophytes at multiple levels in the cervical spine, consistent with dif fuse idiopathic skeletal hyperostosis (DISH). No acute fractures are present. Biapical scarring with calcified pleural plaques. No soft tissue abnormality is present. The airway is patent. Impression: Degenerative disease, without acute fracture Reviewed, dictated and finalized at location A. Impression: Degenerative disease, without acute fracture
[2024-08-28 19:34] VITALS: BP 146/56; PULSE 73; RESP 20; TEMP 36.7; O2SAT 97
--- OUTSIDE RECORDS SUMMARY | 2024-08-28 20:39 | XMS_ITS | Data Portability ---
Author Organization [place] [facility] [employer], Main Office Address [address] [place] [address] Care Team Providers Care Phlebotomy Support Tech Name Role Phone LATRICE ARIAS Primary Care Provider LATRICE ARIAS Referring Provider [phone] Assessment Encounter Date Assessment Date Assessment LastModified by Organization Details LastModified Time 09/11/2022 09/11/2022 I have reconciled the patient's medications post their discharge from inpatient facility. Not available 09/10/2022 17:34:47 10/24/2022 10/24/2022 This note is dictated and transcribed by [employer]. [facility] Manager variances may occur. Despite proofreading, typographical errors may occur. [email or web address] Not available 10/24/2022 15:07:39 Plan of Treatment Reminders Order Date Submit Date Provider Last Modified By Organization Details Last Modified Time Details Appointments None recorded . Lab TSH, serum or plasma 02/25/20 24 [facility] Out[facility], [address] [place], [address], 4 18:50:59 T4, free, serum 02/25/20 24 [facility], [address] [place], [address], 4 18:36:04 CBC w/ auto diff 02/25/20 24 [facility], [address] [place], [address], 4 17:52:21 CMP, serum or plasma 024 02/25/20 24 [facility], [address] [place], [address], 4 18:27:56 Referral None recorded . Procedures None recorded . Surgeries None recorded . Imaging None recorded . Medication Orders None recorded . Patient TargetsNo targets recorded. Patient Instructions Encounter Date Encounter Id Patient Instructions Last Modified By Organization Details Last Modified Time 09/11/2022 [id number] Thank you for yo ur visit to our office today. We would like to request that you reach out to your referring or previous provider and request that they send us a Summary of Care in electronic form, so that we may have it on file in your medical record. At your visit, we had the medical records we needed to provide you with the best possible care; however, for insurance purposes, an electronic Summary of Care is beneficial. Thank you for your assistance in obtaining this information and we look forward to providing continued care to you. Please review your medication list from the Summary of Care for this visit. If there are any differences from what you are currently taking at home, please call us to discuss. Not available 09/10/2022 17:34:43 Homebound Status : {{Patient has an inability to leave the home without a taxing effort and assistance from another person* Does not meet homebound status}} Required Home Health Services: {{none long-term, physical therapy, occupational therapy* long-term, physical therapy long-term}} Durable Medical Equipment needed: {{cane walker walker with seat manual wheelchair bedside commode oxygen}} Transition of care documentation from recent hospitalization following multiple falls. Has progressive dementia almost point where he needs to be institutionalized but the is trying to hold on and weight longer. Does have home health coming out evaluate the patient to try to assist at home. Not any need any additional blood work or other testing at this time. Will follow up for the coronary artery disease -hypertension -hyperlipidemia -hypothyroidism and advanced dementia. Follow-up in 30 days. Billing Guidelines CPT code 35668- Transitional Care Management services with moderate medical decision complexity (gsht-gw-crap visit within 14 days of discharge). CPT code 66032- Transitional Care Management services with high medical decision complexity (vruk-lb-pgbt visit within 7 days of discharge). [email or web address] Not available 09/11/2022 12:17:03 12/18/2022 [id number] Follow-up meneses ry artery disease -hyperlipidemia -hypertension -severe dementia. Plan is to continue on current Rx had recent blood work performed which showed adequate. No reason for further testing at this time. Will continue on current Rx follow-up in four months. [email or web address] Not available 12/18/2022 15:55:29 04/30/2023 [id number] Follow-up meneses ry artery disease -hypertension -hyperlipidemia -GERD -severe dementia. Plan is to continue with current Rx. Stopping the Zetia since there is no reason to continue on any cholesterol medication due to his advancing dementia. Continue on his other medications as prescribed. No blood need at this time blood work performed back in February looked adequate. Will continue on current Rx and follow-up in four months. Portions of the record may have been created with voice recognition software. Occasional wrong-word or [id number] substitutions may have occurred due to the inherent limitations of voice recognition software. Read the chart carefully and recognize, using context, where substitutions have occurred. Next Appt: 4 Months Approximate Date: 08/28/2023 [email or web address] Not available 04/30/2023 14:54:53 02/25/2024 [id number] Coronary artery disease, essential hypertension, hyperlipidemia, hypothyroidism, edema of the lower extremities and advanced dementia. Due to his advanced dementia no need to continue on any type of cholesterol medication. Will check a potassium but place on some potassium supplementation because of his dosages of diuretics. Is clinically stable otherwise. Follow-up in four months. Next Appointment: 4 Months Approximate Date: 06/24/2024 Portions of the record may have been created with voice recognition software. Occasional wrong-word or gymfk-y-bjos substitutions may have occurred due to the inherent limitations of voice recognition software. Read the chart carefully and recognize, using context, where substitutions have occurred. [email or web address] Not available 02/25/2024 17:23:22 Reason for Referral None Reported. Results Created Date Observation Date Name Description Value Unit Range Abnormal Flag Note LastModifiedBy Organization Detail LastModifiedTime 08/23/1908/22/2022 HEMOG LOBIN A1C HA1C 6.2 % 4.0-6. 0 high Diabe kaila Scree dahlia Crite bernardino: <5.7% Consi stent with absen ce of diabe kaila 5.7-6 .4% Consi stent with incre ased risk for diabe kaila (pred iabet es) >OR=6 .5% Consi stent with diabe kaila REFER ENCE: Diabe kaila Care 2016, 39(Raines ppl.1 ):s13 -s22 Not Available [facility] (Lab) [address] [place], [address], 08/22/2022 15:32:15 09/23/19 23 09/22/2022 URINA LYSIS COMPL ETE, IRIS color YELLOW Not Available [facility] (Lab) [address] [place], [address], 09/22/2022 11:21:30 09/23/19 23 09/22/2022 URINA LYSIS COMPL ETE, IRIS appear TURBID abnormal Not Available [facility] (Lab) [address] [place], [address], 09/22/2022 11:21:30 09/23/19 23 09/22/2022 URINA LYSIS COMPL ETE, IRIS specific gravity 1.020 1.001- 1.030 Not Available [facility] (Lab) [address] [place], [address], 09/22/2022 11:21:30 09/23/19 23 09/22/2022 URINA LYSIS COMPL ETE, IRIS pH 6.5 pH_un its 5.0-9. 0 Not Available [facility] (Lab) [address] [place], [address], 09/22/2022 11:21:30 09/23/19 23 09/22/2022 URINA LYSIS COMPL ETE, IRIS leukocytes 75 won/u L negati ve- abnormal Not Available [facility] (Lab) [address] [place], [address], 09/22/2022 11:21:30 09/23/19 23 09/22/2022 URINA LYSIS COMPL ETE, IRIS nitrite NEGATI VE negati ve- Not Available [facility] (Lab) [address] [place], [address], 09/22/2022 11:21:30 09/23/19 23 09/22/2022 URINA LYSIS COMPL ETE, IRIS protein 10 mg/dL negati ve- abnormal Not Available [facility] (Lab) [address] [place], [address], 09/22/2022 11:21:30 09/23/19 23 09/22/2022 URINA LYSIS COMPL ETE, IRIS glucose NORMAL mg/dL normal - Not Available [facility] (Lab) [address] [place], [address], 09/22/2022 11:21:30 09/23/19 23 09/22/2022 URINA LYSIS COMPL ETE, IRIS ketones NEGATI VE mg/dL negati ve- Not Available [facility] (Lab) [address] [place], [address], 09/22/2022 11:21:30 09/23/19 23 09/22/2022 URINA LYSIS COMPL ETE, IRIS urobilinogen NORMAL mg/dL normal - Not Available [facility] (Lab) [address] [place], [address], 09/22/2022 11:21:30 09/23/19 23 09/22/2022 URINA LYSIS COMPL ETE, IRIS bilirubin NEGATI VE mg/dL negati ve- Not Available [facility] (Lab) [address] [place], [address], 09/22/2022 11:21:30 09/23/19 23 09/22/2022 URINA LYSIS COMPL ETE, IRIS blood >/=1.0 mg/dL negati ve- abnormal Not Available [facility] (Lab) [address] [place], [address], 09/22/2022 11:21:30 09/23/19 23 09/22/2022 URINA LYSIS COMPL ETE, IRIS white blood cells 0-8 /i??h pfi?? 0-8 Not Available [facility] (Lab) [address] [place], [address], 09/22/2022 11:21:30 09/23/19 23 09/22/2022 URINA LYSIS COMPL ETE, IRIS red blood cells PACKED /i??h pfi?? 0-4 abnormal Not Available [facility] (Lab[facility] [address] [facility] [place], [address], 09/22/2022 11:21:30 09/23/19 23 09/22/2022 URINA LYSIS COMPL ETE, IRIS bacteria NONE Not Available [facility] (Lab) [address] [place], [address], 09/22/2022 11:21:30 09/23/19 23 09/22/2022 URINA LYSIS COMPL ETE, IRIS mucous OCCASI ONAL /i??l pfi?? abnormal Not Available [facility] (Lab) [address] [place], [address], 09/22/2022 11:21:30 09/23/19 23 09/22/2022 URINA LYSIS COMPL ETE, IRIS squamous epithelial MODERA TE /i??l pfi?? abnormal Not Available [facility] (Lab) [address] [place], [address], 09/22/2022 11:21:30 09/23/19 23 09/22/2022 CULTU RE URINE urc ===== ===== ===== ===== ===== ===== ===== ===== ===== ===== ===== ===== ===== ===== ===== ===== ===== ===== ===== ===== ===== ===== ===== ===== CULTU RE NO.: [id number] Exam Statu s: Final Exam Type: CULTU RE URINE ===== ===== ===== ===== ===== ===== ===== ===== ===== ===== ===== ===== ===== ===== ===== ===== ===== ===== ===== ===== ===== ===== ===== ===== Cultu re Repor t: Organ ism #01 Staph yloco ccus aureu s (staa ur) Antib iotic s staau r Achie vable Achie vable () Dosag e Serum Level Urine Level mcg/m l mcg/m l Beta- Lacta matthew POS + 021A Cefox itin Scree n POS + 021A Cipro floxa akhil >=8 R 021A Dapto mycin 0.5 S 021A Doxyc yclin e <=0.5 S 021A Genta micin <=0.5 S 021A Induc ible Clind amyci POS + 021A Levof loxac in >=8 R 021A Linez olid 2 S 021A Oxaci llin >=4 R 021A Rifam pin <=0.5 S 021A Tetra cycli ne 2 S 021A Trmet hopri m.Sul fa <=10 S 021A Vanco mycin 1 S 021A rt - Test Card Code AST-G P 021A o2 - Final Organ ism STAPH Y 021A af - Antib iotic Fami MACRO L 021A af - Antib iotic Famil y Na ap - Pheno type Name MLSB I 021A ap - Pheno type Name Nitro furan toin <=16 S 021A Not Available [facility] (Lab) [address] [place], [address], 09/24/2022 07:52:36 02/25/20 24 02/25/2024 CBC/C OMPLE TE BLD COUNT W/DIF F white blood cells 6.9 x10'3 /uL 4.2-10 .8 Not Available [facility] (Lab) [address] [place], [address], 02/25/2024 17:52:21 02/25/20 24 02/25/2024 CBC/C OMPLE TE BLD COUNT W/DIF F red blood cells 4.07 x10'6 /uL 4.10-5 .80 low Not Available [facility] (Lab) [address] [place], [address], 02/25/2024 17:52:21 02/25/2002/25/2024 CBC/C OMPLE TE BLD COUNT W/DIF F hemoglobin 13.1 g/dL 13.2-1 7.0 low Not Available [facility] (Lab) [address] [place], [address], 02/25/2024 17:52:21 02/25/20 24 02/25/2024 CBC/C OMPLE TE BLD COUNT W/DIF F hematocrit 39.7 % 39.3-5 0.0 Not Available [facility] (Lab) [address] [place], [address], 02/25/2024 17:52:21 02/25/20 24 02/25/2024 CBC/C OMPLE TE BLD COUNT W/DIF F mean red cell volume 97.5 fL 80.0-9 7.0 high Not Available [facility] (Lab) [address] [place], [address], 02/25/2024 17:52:21 02/25/2002/25/2024 CBC/C OMPLE TE BLD COUNT W/DIF F mean red cell hemoglobin 32.2 pg 27.0-3 3.0 Not Available [facility] (Lab) [address] [place], [address], 02/25/2024 17:52:21 02/25/20 24 02/25/2024 CBC/C OMPLE TE BLD COUNT W/DIF F mean RBC HGB concentratio n 33.0 g/dL 31.0-3 6.0 Not Available [facility] (Lab) [address] [place], [address], 02/25/2024 17:52:21 02/25/20 24 02/25/2024 CBC/C OMPLE TE BLD COUNT W/DIF F red cell distribution width 14.3 % 11.8-1 5.5 Not Available [facility] (Lab) [address] [place], [address], 02/25/2024 17:52:21 02/25/20 24 02/25/2024 CBC/C OMPLE TE BLD COUNT W/DIF F platelets 246 x10'3 /uL 150-40 0 Not Available [facility] (Lab) [address] [place], [address], 02/25/2024 17:52:21 02/25/20 24 02/25/2024 CBC/C OMPLE TE BLD COUNT W/DIF F mean platelet volume 9.3 fL 9.0-12 .4 Not Available [facility] (Lab) [address] [place], [address], 02/25/2024 17:52:21 02/25/20 24 02/25/2024 CBC/C OMPLE TE BLD COUNT W/DIF F neutrophils 60.8 % 39.0-7 2.0 Not Available [facility] (Lab) [address] [place], [address], 02/25/2024 17:52:21 02/25/20 24 02/25/2024 CBC/C OMPLE TE BLD COUNT W/DIF F lymphocytes 27.0 % 16.0-4 7.0 Not Available [facility] (Lab) [address] [place], [address], 02/25/2024 17:52:21 02/25/20 24 02/25/2024 CBC/C OMPLE TE BLD COUNT W/DIF F monocytes 10.2 % 5.0-12 .0 Not Available [facility] (Lab) [address] [place], [address], 02/25/2024 17:52:21 02/25/20 24 02/25/2024 CBC/C OMPLE TE BLD COUNT W/DIF F eosinophils 1.3 % 1.0-7. 0 Not Available [facility] (Lab) [address] [place], [address], 02/25/2024 17:52:21 02/25/20 24 02/25/2024 CBC/C OMPLE TE BLD COUNT W/DIF F basophils 0.6 % 0.0-2. 0 Not Available [facility] (Lab) [address] [place], [address], 02/25/2024 17:52:21 02/25/20 24 02/25/2024 CBC/C OMPLE TE BLD COUNT W/DIF F immature granulocytes 0.1 % 0.00-0 .50 Not Available [facility] (Lab) [address] [place], [address], 02/25/2024 17:52:21 02/25/20 24 02/25/2024 CBC/C OMPLE TE BLD COUNT W/DIF F neutrophils, absolute count 4.17 x10'3 /uL 1.5-8. 0 Not Available [facility] (Lab) [address] [place], [address], 02/25/2024 17:52:21 02/25/20 24 02/25/2024 CBC/C OMPLE TE BLD COUNT W/DIF F lymphocytes, absolute count 1.85 x10'3 /uL 1.07-3 .43 Not Available [facility] (Lab) [address] [place], [address], 02/25/2024 17:52:21 02/25/20 24 02/25/2024 CBC/C OMPLE TE BLD COUNT W/DIF F monocytes, absolute count 0.70 x10'3 /uL 0.29-0 .99 Not Available [facility] (Lab) [address] [place], [address], 02/25/2024 17:52:21 02/25/20 24 02/25/2024 CBC/C OMPLE TE BLD COUNT W/DIF F eosinophils, absolute count 0.09 x10'3 /uL 0.02-0 .53 Not Available [facility] (Lab) [address] [place], [address], 02/25/2024 17:52:21 02/25/20 24 02/25/2024 CBC/C OMPLE TE BLD COUNT W/DIF F basophils, absolute count 0.04 x10'3 /uL 0.01-0 .08 Not Available [facility] (Lab) [address] [place], [address], 02/25/2024 17:52:21 02/25/20 24 02/25/2024 CBC/C OMPLE TE BLD COUNT W/DIF F immature granulocytes ,absolute 0.01 x10'3 /uL 0.00-0 .05 Not Available [facility] (Lab) [address] [place], [address], 02/25/2024 17:52:21 02/25/20 24 02/25/2024 CBC/C OMPLE TE BLD COUNT W/DIF F nucleated red blood cells 0.0 % -0 Not Available [facility] (Lab) [address] [place], [address], 02/25/2024 17:52:21 02/25/20 24 02/25/2024 CBC/C OMPLE TE BLD COUNT W/DIF F NRBC# 0.00 x10'3 /uL Not Available [facility] (Lab) [address] [place], [address], 02/25/2024 17:52:21 02/25/20 24 02/25/2024 COMPR EHENS JEN METAB OLIC PANEL sodium 141 mmol/ L 137-14 5 Not Available [facility] (Lab) [address] [place], [address], 02/25/2024 18:27:55 02/25/20 24 02/25/2024 COMPR EHENS JEN METAB OLIC PANEL potassium 3.6 mmol/ L 3.5-5. 1 Not Available [facility] (Lab) [address] [place], [address], 02/25/2024 18:27:55 02/25/20 24 02/25/2024 COMPR EHENS JEN METAB OLIC PANEL chloride 97 mmol/ L 98-107 low Not Available [facility] (Lab) [address] [place], [address], 02/25/2024 18:27:55 02/25/20 24 02/25/2024 COMPR EHENS JEN METAB OLIC PANEL carbon dioxide 38 mmol/ L 22-30 high Not Available [facility] (Lab) [address] [place], [address], 02/25/2024 18:27:55 02/25/20 24 02/25/2024 COMPR EHENS JEN METAB OLIC PANEL anion gap 9.6 mmol/ L 14-22 low Not Available [facility] (Lab) [address] [place], [address], 02/25/2024 18:27:55 02/25/20 24 02/25/2024 COMPR EHENS JEN METAB OLIC PANEL glucose 115 mg/dL 70-99 high Not Available [facility] (Lab) [address] [place], [address], 02/25/2024 18:27:55 02/25/20 24 02/25/2024 COMPR EHENS JEN METAB OLIC PANEL BUN 40 mg/dL 8-19 high Not Available [facility] (Lab) [address] [place], [address], 02/25/2024 18:27:55 02/25/20 24 02/25/2024 COMPR EHENS JEN METAB OLIC PANEL creatinine 2.02 mg/dL 0.66-1 .25 high Not Available [facility] (Lab) [address] [place], [address], 02/25/2024 18:27:55 02/25/20 24 02/25/2024 COMPR EHENS JEN METAB OLIC PANEL GFR 31 Refer ence Range : [place] ge GFR Healt hy Adult : >60 mL/mi n/1.7 3 m2 Chron ic Kidne y Disea se: 15-60 mL/mi n/1.7 3 m2 Kidne y Failu re: <15/m L/min /1.73 m2 www.n iddk. nih.g ov The MDRD study equat ion has not been valid ated in child rafi <18 years of age; pregn ant women ; the elder ly >85 years of age; or in some racia l or ethni c subgr oups, such as wy nics. Outsi de the valid ated yoandy eters , estim ated GFR is less accur ate, requi ring clini blake judgm ent on a case- by-ca se basis . Clini blake inter preta tion for other races and ages must be made by the clini alex. The MDRD study equat ion has not been valid ated for the evalu ation of serum creat inine relat ed to nutri ninfa l statu s or medic ation usage . For perso ns <18 years of age, a pedia tric GFR calcu lator is avail able on the [facility] websi te: https ://gigi thompson.sharath albert.o rg/pr ofess ional s/kdo qi/gf r_cal culat or Not Available [facility] (Lab) [address] [place], [address], 02/25/2024 18:27:55 02/25/20 24 02/25/2024 COMPR EHENS JEN METAB OLIC PANEL alkaline phosphatase 151 U/L 38-126 high Not Available [facility] (Lab) [address] [place], [address], 02/25/2024 18:27:55 02/25/20 24 02/25/2024 COMPR EHENS JEN METAB OLIC PANEL alanine aminotransfe rase 38 U/L 0-50 Not Available [facility] (Lab) [address] [place], [address], 02/25/2024 18:27:55 02/25/20 24 02/25/2024 COMPR EHENS JEN METAB OLIC PANEL aspartate aminotransfe rase 37 U/L 15-46 Not Available [facility] (Lab) [address] [place], [address], 02/25/2024 18:27:55 02/25/20 24 02/25/2024 COMPR EHENS JEN METAB OLIC PANEL bilirubin, total 0.40 mg/dL 0.20-1 .30 Not Available [facility] (Lab) [address] [place], [address], 02/25/2024 18:27:55 02/25/20 24 02/25/2024 COMPR EHENS JEN METAB OLIC PANEL calcium 9.1 mg/dL 8.4-10 .2 Not Available [facility] (Lab) [address] [place], [address], 02/25/2024 18:27:55 02/25/20 24 02/25/2024 COMPR EHENS JEN METAB OLIC PANEL total protein 7.8 g/dL 6.3-8. 2 Not Available [facility] (Lab) [address] [place], [address], 02/25/2024 18:27:55 02/25/20 24 02/25/2024 COMPR EHENS JEN METAB OLIC PANEL albumin 4.3 g/dL 3.0-4. 4 Not Available [facility] (Lab) [address] [place], [address], 02/25/2024 18:27:55 02/25/20 24 02/25/2024 COMPR EHENS JEN METAB OLIC PANEL globulin 3.5 g/dL 2.6-4. 2 Not Available [facility] (Lab) [address] [place], [address], 02/25/2024 18:27:55 02/25/20 24 02/25/2024 COMPR EHENS JEN METAB OLIC PANEL A/G ratio 1.2 ratio 1.0-2. 0 Not Available [facility] (Lab) [address] [place], [address], 02/25/2024 18:27:55 02/25/20 24 02/25/2024 T4 FREE free T4 0.88 NG/dL 0.78-2 .19 Not Available [facility] (Lab) [address] [place], [address], 02/25/2024 18:36:04 02/25/20 24 02/25/2024 TSH thyroid-stim ulating hormone 0.737 uIU/m L 0.465- 4.680 Not Available [facility] (Lab) [address] [place], [address], 02/25/2024 18:50:59 04/04/20 23 04/04/2023 XR, knee No observ ation record ed. [email or web address] [facility] [address] [place], [address], 04/04/2023 14:03:59 04/04/20 23 04/04/2023 XR, knee No observ ation record ed. [facility] [address] [place], [address], 04/16/2023 16:36:38 04/04/20 23 04/04/2023 XR, knee No observ ation record ed. [facility] [address], [place], [address], 04/16/2023 16:36:51 07/31/19 24 07/31/2023 XR, hand No observ ation record ed. [email or web address] [facility] ([employer]) [address], [place], [address], 08/01/2023 06:50:11 04/15/20 24 04/15/2024 XR, garcia um, 2 or more view No observ ation record ed. [email or web address] [facility] ([employer]) [address], [place], [address], 04/16/2024 09:56:30 08/29/19 25 08/28/2024 imagi ng/di agnos tic resul t No observ ation record ed. [address] [facility], [place], [address], 08/28/2024 21:25:19 08/29/19 25 08/28/2024 imagi ng/di agnos tic resul t No observ ation record ed. [address] [facility], [place], [address], 08/28/2024 21:38:43 Result Notes None recorded. Problems Name Problem SNOMED Code Status Onset Date Resolution Date Notes Provider Name and Address Organization Details Recorded Time [facility] emia 16507352 Active 2022 Not Available [facility] 19:55:02 Difficult y swallowin g 608952680 Active 2022 Not Available [facility] 19:55:01 Anxiety 97586185 Active 2022 Katerin Echavarria, CHERYL null, [place] [facility] 3 16:31:41 Confusion al state 040893421 Active 2022 Katerin Echavarria CMA null, [place] [facility] 3 16:50:24 Urinary tract infectiou s disease 97883572 Active 2022 Latrice Arias MD [address], [place], [address] , [place] [facility] 3 12:44:04 Edema 244728305 Active 2022 Katerin Echavarria CMA null, [place] [facility] 3 12:16:10 Skin lesion 91549150 Active 2022 Katerin Echavarria CMA null, [place] [facility] 3 15:35:51 Pain of right knee joint 70632168140 4100 Active 2022 Katerin Echavarria CMA null, [place] [facility] 3 15:28:25 Acute sinusitis 27412059 Active 2022 Latrice Arias MD [address], [address], [place], [address] , [place] [facility] 3 12:56:22 COVID-19 808520612 Active 2023 Latrice Arias MD [address], [place], [address] , [place] [facility] 4 14:41:53 Acute confusion 686798023 Active 2023 Katerin Echavarria CMA null, [place] [facility] 4 15:19:23 Edema of lower extremity 971008850 Active 2023 Katerin Echavarria CMA null, [place] [facility] 4 15:57:22 Pruritic rash 50323753 Active 2023 Latrice Arias MD [address], [place], [address] , [place] [facility] 4 14:16:13 Increased frequency of urination 293764543 Active 2023 Katerin Echavarria CMA null, [place] [facility] 4 15:15:22 Chest injury 565309952 Active 2023 Katerin Echavarria CMA null, [place] [facility] 4 16:22:25 Conjuncti vitis 2329435 Active 2023 Latrice Arias MD [address] [place] [address], [facility] [address], [place], [address] , [facility] 4 15:49:21 Acute bronchiti s 84131230 Active Not Available [facility] 3 19:55:01 Paronychi a of toe of left foot 85358183534 015649 Active 2020 Not Available [facility] 3 19:55:01 Paronychi a of toe of right foot 63845236092 757822 Active 2020 Not Available [facility] 3 19:55:01 Hyperchol esterolem ia 49007468 Active 2017 Not Available [facility] 3 19:55:01 Right flank pain 235893671 Active 2021 Not Available [facility] 3 19:55:01 Localized , primary osteoarth ritis of the pelvic region and thigh 130873110 Active Not Available [facility] 3 19:55:01 Spasm of back muscles 383735642 Active 2021 Not Available [facility] 3 19:55:01 Gastroeso phageal reflux disease 370104157 Active Not Available [facility] 3 19:55:01 Inflammat ory bowel disease 96193299 Completed Not Available [facility] 3 04:47:41 Pure hyperchol esterolem ia 274214716 Active Not Available [facility] 3 19:55:01 Anemia 965433372 Active 2021 Not Available [facility] 3 19:55:01 Recurrent falls 855769213 Active 2021 Not Available [facility] 3 19:55:01 Unable to cut own toenails 071560727 Active 2020 Not Available [facility] 3 19:55:01 Pain in toe 807112802 Active 2021 Not Available [facility] 3 19:55:01 Knee pain Active Not Available [facility] 3 19:55:01 Arthritis 2677277 Active 2017 Not Available [facility] 3 19:55:01 Disorder of vitamin B12 523744573 Active Not Available [facility] 3 19:55:01 Memory impairmen t 092733260 Completed Not Available [facility] 3 04:47:42 Prostate specific antigen above reference range 989650668 Active 2021 Not Available [facility] 3 19:55:01 Ingrowing nail 269245837 Active 2017 Not Available [facility] 3 19:55:01 Onychomyc osis of toenails 445850962 Active 2021 Not Available [facility] 3 19:55:01 Hypothyro idism 22373257 Active 2021 Not Available [facility] 3 19:55:01 Dementia 55835769 Active 2017 Not Available [facility] 3 19:55:01 Coronary arteriosc lerosis 92659643 Active Not Available [facility] 3 19:55:01 Hyperlipi demia 36451979 Active 2021 Not Available [facility] 3 19:55:01 Heart disease 20587834 Active 2017 Not Available [facility] 3 19:55:02 Essential hypertens ion 81799787 Active Not Available [facility] 3 19:55:02 Bleeding from anus 6873909 Active Not Available [facility] 3 19:55:02 Vitamin B12 deficienc y (non anemic) 45315678 Active 2021 Not Available [facility] 3 19:55:02 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 Please review these documents and add these problems to the patient's chart manually as needed. Problem Notes None recorded. Procedures Surgical History Date Name Laterality Status Provider Name and Address Organization Details Recorded Time 3 Nail Debridement completed Juan Antonio Arevalo DPM [address] [facility], [address], [place], [address], [employer] [facility] [employer] 10/24/2022 15:07:11 3 Transitional_Ca re_Management completed Latrice Arias MD [address], [address], [place], [address], [employer] 09/11/2022 12:16:39 Imaging Results Imaging Date Name Status LastModified by [facility]iz [facility] Details LastModified Time 04/04/2023 XR, knee completed [email or web address] [facility] [address] [place], [address], 04/04/2023 14:03:59 04/04/2023 XR, knee completed [id number] [facility] [address], [place], [address], 04/16/2023 16:36:38 04/04/2023 XR, knee completed [facility] [address] , [place], [address], 04/16/2023 16:36:51 07/31/2023 XR, hand completed [email or web address] [facility] ([employer]) [address], [place], [address], 08/01/2023 06:50:11 04/15/2024 XR, sternum, 2 or more view completed [email or web address] [facility] ([employer] [facility]) [address], [place], [address], 04/16/2024 09:56:30 08/28/2024 imaging/diag nostic result active [place] [id number] [facility] [address], [place], [address], 08/28/2024 21:25:19 08/28/2024 imaging/diag nostic result active [place] [id number] [facility] [address], [place], [address], 08/28/2024 21:38:43 Procedure Notes None recorded. Medical Equipment None Reported. Allergies Allergen ID Allergen Name Allergen Category Reaction Reaction Severity Criticality Documentation Date Start Date Code Code System Note Provider Name and Address Organization Details Recorded Time 7052 Toradol medicatio n rash Not available Not available 08/09/2022 63376 RxNorm Not Available [facility] 3 04:55:30 7053 niacin medicatio n rash Not available Not available 08/09/2022 7393 RxNorm Not Available [facility] 3 04:55:31 7054 aspirin medicatio n Not available Not available Not available 08/09/2022 1191 RxNorm Not Available [facility] 3 04:55:31 Medications Name Sig Start Date Stop Date Status Note LastModified by Organization Details LastModified Time quetiapin e 25 mg tablet TAKE 1 TABLET BY MOUTH AT BEDTIME active Not Available Not Available No t Available celecoxib 200 mg capsule 09/22 completed Not Available Not Available Not Available cyclobenz aprine 10 mg tablet Take 1 tablet three times daily active Not Available Not Available No t Available amoxicill in 500 mg capsule Take 1 capsule 3 times a day by oral route for 10 days. 07/19 completed Not Available Not Available Not Available furosemid e 40 mg tablet TAKE ONE TABLET DAILY active Not Available Not Available No t Available metolazon e 2.5 mg tablet TAKE ONE TABLET DAILY FOR EDEMA active Not Available Not Available No t Available doxycycli ne hyclate 100 mg capsule 11/23 completed Not Available Not Available Not Available donepezil 5 mg tablet Take 1 tablet every day by oral route. 2014 active Not Available Not Available Not Avai lable divalproe x 250 mg tablet,de layed release TAKE 1 TABLET BY MOUTH TWICE A DAY active Not Available Not Available No t Available Vitamin C 500 mg tablet Take 1 tablet every day by oral route. 11/10 completed Not Available Not Available Not Available loperamid e 2 mg capsule active Not Available Not Available Not Available trazodone 50 mg tablet TAKE 1/2 TABLET BY MOUTH NIGHTLY active Not Available Not Available No t Available azithromy akhil 250 mg tablet TAKE 2 TABLETS (500 MG) BY ORAL ROUTE ONCE DAILY FOR 1 DAY THEN 1 TABLET (250 MG) BY ORAL ROUTE ONCE DAILY FOR 4 DAYS active Not Available Not Available No t Available aspirin 325 mg tablet One daily active Not Available Not Available No t Available metoprolo l tartrate 100 mg tablet TAKE ONE TABLET TWICE DAILY 11/10 completed Not Available Not Available Not Available benzonata te 200 mg capsule Take 1 capsule 3 times a day by oral route. active Not Available Not Available No t Available donepezil 10 mg tablet Take 1 tablet every day by oral route. active Not Available Not Available No t Available prednison e 20 mg tablet active Not Available Not Available Not Available Zyrtec 10 mg tablet Take 1 tablet every day by oral route.-D ISCONTIN UE THIS MEDICATI ON 2023 active Not Available Not Available Not Avai lable Klor-Con 20 mEq oral packet active Not Available Not Available Not Available amlodipin e 5 mg tablet active Not Available Not Available Not Available simvastat in 80 mg tablet TAKE 1 TABLET BY MOUTH EVERYDAY AT BEDTIME 12/18 completed Not Available Not Available Not Available ciproflox acin 500 mg tablet Take 1 tablet twice a day by oral route for 10 days. 12/29 completed Not Available Not Available Not Available sulfameth oxazole 800 mg-trimet hoprim 160 mg tablet 07/10 /2023 completed Not Available Not Available Not Available omeprazol e 40 mg capsule,d elayed release TAKE 1 CAPSULE BY MOUTH EVERY DAY active Not Available Not Available No t Available tramadol 50 mg tablet TAKE 1 TABLET BY MOUTH EVERY 8 HOURS NEEDED 12/18 completed Not Available Not Available Not Available quetiapin e 100 mg tablet TAKE ONE TABLET EVERY MORNING AND ONE TABLET AT BEDTIME WITH A 50 MG(TO EQUAL 150 MG) AT NIGHT. active Not Available Not Available No t Available triamcino lone acetonide 0.1 % topical cream APPLY A THIN LAYER TO THE AFFECTED AREA(S) BY TOPICAL ROUTE 2 TIMES PER DAY active Not Available Not Available No t Available levothyro xine 75 mcg tablet TAKE 1 TABLET BY MOUTH EVERY DAY active Not Available Not Available No t Available oxycodone -acetamin ophen 5 mg-325 mg tablet 12/29 completed Not Available Not Available Not Available Tessalon Perles 100 mg capsule Take 1 capsule 3 times a day by oral route. active Not Available Not Available No t Available potassium chloride ER 20 mEq tablet,ex tended release(p art/cryst ) active Not Available Not Available Not Available Imodium A-D 2 mg tablet 1-2 tablets as directed 2022 active Not Available Not Available Not Avai lable aspirin 325 mg tablet,de layed release TAKE 1 TABLET BY MOUTH EVERY DAY 12/18 completed Not Available Not Available Not Available tamsulosi n 0.4 mg capsule TAKE 1 CAPSULE BY MOUTH EVERYDAY AT BEDTIME active Not Available Not Available No t Available trazodone 100 mg tablet TAKE 1 TABLET BY MOUTH EVERYDAY AT BEDTIME 11/17 completed Not Available Not Available Not Available Beconase AQ 42 mcg (0.042 %) nasal spray [place] 1 spray twice a day by intranas al route. 2013 active Not Available Not Available Not Avai lable Kenalog 10 mg/mL suspensio n for injection In office injectio n administ ered by the provider 08/31 completed [facility]: 0003-049 09-28 Not Available Not Available Not Available hydrocodo ne 7.5 mg-acetam inophen 325 mg tablet TAKE 1 TABLET EVERY 6 HOURS NEEDED 03/13 completed No new prescrip tons before: 11/13/19 16 Not Available Not Available Not Available cephalexi n 500 mg capsule Take 1 capsule every 6 hours by oral route. active Not Available Not Available No t Available cyanocoba elenita (vit B-12) 1,000 mcg/mL injection solution patient to get 1 ml every four weeks active Not Available Not Available No t Available ferrous sulfate 325 mg (65 mg iron) tablet TAKE ONE TABLET TWICE DAILY WITH FOOD 12/09 completed Not Available Not Available Not Available tobramyci n 0.3 % eye drops INSTILL 1 DROP INTO AFFECTED EYE(S) BY OPHTHALM IC ROUTE EVERY 4 HOURS active Not Available Not Available No t Available lisinopri l 10 mg tablet TAKE 1 TABLET BY MOUTH EVERY DAY 12/18 completed Not Available Not Available Not Available divalproe x 125 mg tablet,de layed release TAKE 1 TABLET BY MOUTH 2 TIMES A DAY. active Not Available Not Available No t Available cranberry fruit 400 mg capsule Take 1 capsule every day by oral route. active Not Available Not Available No t Available oxybutyni n chloride ER 5 mg tablet,ex tended release 24 hr TAKE 1 TABLET BY MOUTH EVERYDAY AT BEDTIME 12/18 completed Not Available Not Available Not Available omeprazol e 20 mg capsule,d elayed release TAKE 1 CAPSULE DAILY active Not Available Not Available No t Available lisinopri l 5 mg tablet TAKE 1 TABLET DAILY FOR HYPERTEN VICKI 11/10 completed Not Available Not Available Not Available Skin Prep Wipes APPLY TWICE A DAY TO LEFT HIP UNTIL HEALED active Not Available Not Available No t Available furosemid e 20 mg tablet Take 1 tablet every day by oral route. active Not Available Not Available No t Available Levaquin 500 mg tablet Take 1 tablet every 24 hours by oral route. active Not Available Not Available No t Available methylpre dnisolone 4 mg tablets in a dose pack Take by oral route as per package insert 03/13 completed Not Available Not Available Not Available Vitamin D2 1,250 mcg (50,000 unit) capsule active Not Available Not Available Not Available AmLactin 12 % lotion Apply 1 applicat ion every day by topical route as needed. 12/09 completed Not Available Not Available Not Available celecoxib 100 mg capsule 09/22 completed Not Available Not Available Not Available benazepri l 10 mg tablet Take 1 tablet every day by oral route. 12/26 completed Not Available Not Available Not Available ketoconaz ole 2 % topical cream APPLY TO THE AFFECTED AREA(S) left great toe BY TOPICAL ROUTE ONCE DAILY 08/31 completed Not Available Not Available Not Available cefdinir 300 mg capsule TAKE 1 CAPSULE BY MOUTH TWICE A DAY 09/11 completed Not Available Not Available Not Available metronida zole 0.75 % topical gel 09/22 completed Not Available Not Available Not Available amoxicill in 875 mg-potass ium clavulana te 125 mg tablet Take 1 tablet every 12 hours by oral route. active Not Available Not Available No t Available AcipHex 20 mg tablet,de layed release Take 1 tablet every day by oral route. 2012 active Not Available Not Available Not Avai lable Tylenol Extra Strength 500 mg tablet one to two tablet 3 times a day as needed for pain 2022 active Not Available Not Available Not Avai lable oxycodone 5 mg tablet 12/29 completed Not Available Not Available Not Available enoxapari n 40 mg/0.4 mL subcutane ous syringe active Not Available Not Available Not Available VanishPoi nt Syringe 3 mL 25 gauge x 1 active Not Available Not Available Not Available escitalop andrea 10 mg tablet TAKE 1 TABLET BY MOUTH EVERY DAY active Not Available Not Available No t Available ezetimibe 10 mg tablet TAKE 1 TABLET BY MOUTH EVERY DAY FOR CHOLESTE ROL 04/30 completed Not Available Not Available Not Available Vitamin D3 25 mcg (1,000 unit) capsule Take 1 capsule every day by oral route. 11/10 completed Not Available Not Available Not Available cyclobenz aprine 5 mg tablet TAKE ONE TABLET 3 TIMES DAILY 12/18 completed Not Available Not Available Not Available Multivita min 50 Plus tablet Take 1 tablet 5 times a day by oral route. 11/10 completed Not Available Not Available Not Available nitrofura ntoin monohydra te/macroc rystals 100 mg capsule Take 1 capsule every 12 hours by oral route. active Not Available Not Available No t Available lidocaine (PF) 10 mg/mL (1 %) injection solution In office injectio n administ ered by the provider 08/31 completed [facility]: 0409-427 6-17 Not Available Not Available Not Available quetiapin e 50 mg tablet TAKE ONE TABLET EVERY NIGHT WITH A 100 MG TABLET TO EQUAL 150 MG EVERY EVENING active Not Available Not Available No t Available vitamin E (dl, acetate) 180 mg (400 unit) capsule Take 1 capsule every day by oral route. 11/10 completed Not Available Not Available Not Available Gavilyte- C 240 gram-22.7 2 gram-6.72 gram-5.84 gram oral solution 09/22 completed Not Available Not Available Not Available ClearLax 17 gram/dose oral powder TAKE 1 CAPFUL MIXED WITH 8 OUNCES OF FLUID ONCE DAILY -- HOLD IF THERE ARE LOOSE STOOLS 04/30 completed Not Available Not Available Not Available Senexon-S 8.6 mg-50 mg tablet TAKE 2 TABLETS TWICE DAILY 09/22 completed Not Available Not Available Not Available cetirizin e 10 mg capsule Take 1 capsule every day by oral route. active Not Available Not Available No t Available Eliquis 2.5 mg tablet 09/22 completed Not Available Not Available Not Available memantine 28 mg capsule sprinkle, extended release 24hr Take 1 capsule every day by oral route. active Not Available Not Available No t Available potassium chloride ER 20 mEq tablet,ex tended release Take 1 tablet every day by oral route. 2023 active Not Available Not Available Not Avai lable Belsomra 10 mg tablet Take 1 tablet every day by oral route at bedtime. 10/17 completed Not Available Not Available Not Available Rexulti 0.5 mg tablet active Not Available Not Available Not Available Fish Oil 1,000 mg (120 mg-180 mg) capsule Take 1 capsule every day by oral route. 11/10 completed Not Available Not Available Not Available Centrum Silver Men 300 mcg-60 mcg-600 mcg-300 mcg tablet Take 1 tablet every day by oral route. 04/30 completed Not Available Not Available Not Available Paxlovid 300 mg (150 mg x 2)-100 mg tablets in a dose pack Take two of the 150mg tablets and one of the 100mg tablets twice daily for five days active Not Available Not Available No t Available CalProtec t 0.44 %-20.6 % topical ointment apply to groin area as needed 2023 active Not Available Not Available Not Avai lable Vitals Date Recorded Body height Body mass index (BMI) Body weight Heart rate Body temperature Oxygen saturation Oxygen saturation in Arterial blood by Pulse oximetry Systolic blood pressure Diastolic blood pressure Provider Name and Address Organization Details Last Updated DateTime 3 165.1 cm 26.1 kg/m2 87043 g 88 /min 97.2 [degF] 98 % 98 % 120 mm[Hg] 48 mm[Hg] Angie Sachacarolinezak [facility] [employer] [facility] 3 12:03:04 Date Recorded Body height Provider Name an d Address Organization Details Last Updated DateTime 10/24/2022 165.1 cm Soraida Coats [employer] [facility] 10/24/2022 12:53:27 Date Recorded Body height Body mass index (BMI) Body weight Heart rate Body temperature Oxygen saturation Oxygen saturation in Arterial blood by Pulse oximetry Systolic blood pressure Diastolic blood pressure Provider Name and Address Organization Details Last Updated DateTime 3 165.1 cm 25 kg/m2 75412.8 6 g 73 /min 97 [degF] 94 % 94 % 138 mm[Hg] 60 mm[Hg] Angie Ajit [employer] [facility] [employer] [facility] 3 15:40:30 Date Recorded Body height Body mass index (BMI) Body weight Heart rate Body temperature Oxygen saturation Oxygen saturation in Arterial blood by Pulse oximetry Systolic blood pressure Diastolic blood pressure Provider Name and Address Organization Details Last Updated DateTime 3 165.1 cm 27.6 kg/m2 48804.3 3 g 74 /min 97 [degF] 93 % 93 % 140 mm[Hg] 60 mm[Hg] Angie Sachacarolinezak [facility] [employer] [facility] 3 14:46:47 Date Recorded Body height Heart rate Body temperature Oxygen saturation Oxygen saturation in Arterial blood by Pulse oximetry Systolic blood pressure Diastolic blood pressure Provider Name and Address Organization Details Last Updated DateTime 4 165.1 cm 65 /min 97.9 [degF] 95 % 95 % 120 mm[Hg] 70 mm[Hg] RONNA Jiang [facility] [employer] [facility] 4 17:05:39 Social History Question Answer Notes LastModified by Organizat ion Details LastModified Time Tobacco Smoking Status Never Smoker Not Available [employer] 08/09/2022 04:25:00 Do You Have An Advance Directive? Yes [id number] Information not available 08/09/2022 What Is Your Level Of Alcohol Consumption? None MIGRATION.[id number] Information not available 08/09/2022 Are You Blind Or Do You Have Difficulty Seeing? No MIGRATION.99485 [id number] Information not available 08/09/2022 In The 14 Days Before Symptom Onset, Have You Had Close Contact With A Laboratory-confir med COVID-19 While That Case Was Ill? No [id number].[id number] Information not available 08/09/2022 In The 14 Days Before Symptom Onset, Have You Had Close Contact With A Person Who Is Under Investigation For COVID-19 While That Person Was Ill? No MIGRATION.51729 [id number] Information not available 08/09/2022 Are You Deaf Or Do You Have Serious Difficulty Hearing? No MIGRATION.16641 [id number] Information not available 08/09/2022 What Type Of Diet Are You Following? REGULAR MIGRATION.08599 40788 Information not available 08/09/2022 Have There Been Any Changes To Your Family Or Social Situation? No MIGRATION.01871 [id number] Information not available 08/09/2022 What Is The Fluoride Status Of Your Home? Unknown MIGRATION.08027 [id number] Information not available 08/09/2022 Are There Any Guns Present In Your Home? No MIGRATION.08707 90175 Information not available 08/09/2022 Do You Use Insect Repellent Routinely? No MIGRATION.89641 [id number] Information not available 08/09/2022 Where Do You Live? [place] MIGRATION.21167 [id number] Information not available 08/09/2022 Do You Have A Medical Power Of Flight Line Mechanic? Yes MIGRATION.13770 46032 Information not available 08/09/2022 What Was The Date Of Your Most Recent Tobacco Screening? 08/31/2021 MIGRATION.50180 [id number] Information not available 08/09/2022 What Is Your Relationship Status? MIGRATION.92829 [id number] Information not available 08/09/2022 Do You Use Your Seat Belt Or Car Seat Routinely? Yes MIGRATION.27306 67522 Information not available 08/09/2022 Do You Have Smoke And Carbon Monoxide Detectors In Your Home? Yes MIGRATION.61459 55550 Information not available 08/09/2022 How Much Tobacco Do You Smoke? No MIGRATION.47619 05688 Information not available 08/09/2022 Do You Use Sunscreen Routinely? No MIGRATION.88371 01863 Information not available 08/09/2022 Have You Recently Traveled Abroad? No MIGRATION.78099 44093 Information not available 08/09/2022 Do You Have Any Dietary Restrictions? No MIGRATION.46327 15395 Information not available 08/09/2022 Sex: Male Functional Status Question Answer Note LastModified by Organizat ion Details LastModified Time Do you have difficulty walking or climbing stairs? No [id number] Information not available 08/09/2022 Do you have transportation difficulties? No MIGRATION.[id number] 026 Information not available 08/09/2022 Are you able to walk? YESWOREST MIGRATION.[id number] 026 Information not available 08/09/2022 Do you have difficulty doing errands alone? Yes MIGRATION.[id number] 026 Information not available 08/09/2022 Are you able to care for yourself? No MIGRATION.[id number] 026 Information not available 08/09/2022 Do you have difficulty dressing or bathing? No MIGRATION.[id number] 026 Information not available 08/09/2022 What is your exercise level? Occasional MIGRATION.[id number] 026 Information not available 08/09/2022 Mental Status Question Answer Note LastModified by Organizat ion Details LastModified Time Do you have difficulty concentrating, remembering or making decisions? No MIGRATION.[id number] Information not available 08/09/2022 Family History Relationship Description Onset Age of this Age Resolved Age Notes LastModified by Organization Details LastModified Time Father Family history of malignant neoplasm [id number] Not available 08/09/2022 04:41:50 Father Heart disease MIGRATION.[id number] Not available 08/09/2022 04:41:51 Brother Family history of malignant neoplasm MIGRATION.760 [id number] Not available 08/09/2022 04:41:51 Brother Heart disease MIGRATION.[id number] Not available 08/09/2022 04:41:51 Brother Diabetes mellitus MIGRATION.777 [id number] Not available 08/09/2022 04:41:51 Mother Essential hypertension MIGRATION.385 [id number] Not available 08/09/2022 04:41:51 Mother Diabetes mellitus MIGRATION.[id number] Not available 08/09/2022 04:41:51 Notes:Mother 82 from co mplications of Alzheimer's. Father 86 from [place] prostate. One brother with ASHD and in good health. Medical History Condition Response BLINDNESS N NERVE DISEASE N RHEUMATIC FEVER N BLADDER PROBLEMS N KIDNEY STONES N MRSA N OTHER # 1 N POLIO N LUNG DISEASE/DISORDER N HISTORY OF DRUG ABUSE N RADIATION / CHEMOTHERAPY N COPD N Other # 2 N BLOOD DISEASES N EAR OR HEARING PROBLEMS N MUMPS N SHINGLES N BOWEL PROBLEMS N DEPRESSION (INCLUDING POST ) N STROKE/TIA N ULCERS N BENIGN PROSTATIC HYPERPLASIA N MEASLES N HYPOTENSION N MYOCARDIAL INFARCTION N OBESITY N GERD/NAUSEA N ANEURYSM N URINARY/BLADDER/KIDNEY PROBLEMS N CORONARY ARTERY DISEASE (CAD) Y ADDICTION CONCERNS N ENDOMETRIOSIS N Impotence N USE OF BLOOD THINNERS N SKIN PROBLEMS N GASTROINTESTINAL DISORDER N PERIPHERAL VASCULAR DISEASE N MUSCLE,JOINT OR BONE PROBLEMS N GASTROINTESTINAL BLEEDING N BLOOD CLOTS N ASTHMA N CATARACTS N ERECTILE DYSFUNCTION N VARICOSITIES N GI PROBLEMS N Low Testosterone N INFERTILITY N AIDS/HIV N CHEMOTHERAPY / RADIATION N LIVER DISEASE N MALE HYPOGONADISM N HYPERTENSION Y Deficiency N TOURETTE'S N ANXIETY DISORDER N BLOOD TRANSFUSION N ANEMIA/BLOOD DISORDER N CHRONIC EAR INFECTIONS N BRONCHITIS N TUBERCULOSIS N GLAUCOMA N FOOT PROBLEM N DIVERTICULITIS N CHICKENPOX N SLEEP APNEA N INFECTIOUS DISEASE N HEART ARRHYTHMIA N PROSTATE N INSOMNIA N HIGH CHOLESTEROL / HYPERLIPIDEMIA Y HYPERTHYROIDISM N EYE PROBLEMS N EDEMA N CHRONIC PAIN SYNDROME N HYPOTHYROIDISM N CAROTID BLOCKAGE N CONSTIPATION N BACK / NECK PROBLEMS N HAVE YOU BEEN HOSPITALIZED OR SEEN IN [facility] IN THE PAST YEAR ? N ATHEROSCLEROSIS N BREAST PROBLEMS N DIALYSIS N ECZEMA N OSTEOPOROSIS N ARTHRITIS N NO SIGNIFICANT PAST MEDICAL HISTORY N APPENDICITIS N DIABETES, TYPE N BAD TEETH N ENT N HEARTBURN / REFLUX N AUTISM SPECTRUM DISORDER (ASD) N HEPATITIS / LIVER DISEASE N GOUT N SLEEP DISORDER N ALZHEIMER'S DISEASE N Brain Problems N HERPES N DEMENTIA N HEADACHES/MIGRAINES N SEIZURES/EPILEPSY N VASCULAR DISEASE N PACEMAKER N Blood Disorder N DIZZINESS N HEART DISEASE/HEART PROBLEMS N KIDNEY DISEASE N MULTIPLE SCLEROSIS N CARDIAC ARRHYTHMIA N CANCER: SPECIFY N ATRIAL FIBRILLATION N Gall Stones N PULMONARY EMBOLISM N AUTOIMMUNE DISEASE N Immunizations Vaccine Type Date Status Note Provider Nam e and Address Organization Details Recorded Time influenza, unspecified formulation 3 completed Not [facility] 05:08:29 Influenza, split virus, trivalent, preservative 4 completed Not Available [facility] 07/20/2023 05:08:29 Influenza, split virus, trivalent, preservative 3 completed Not Available [facility] 07/20/2023 05:08:29 COVID-19, mRNA, LNP-S, PF, 30 mcg/0.3 mL dose 2 completed Not Available [facility] 07/20/2023 05:08:29 COVID-19, mRNA, LNP-S, PF, 30 mcg/0.3 mL dose 2 completed Not Available [facility] 07/20/2023 05:08:29 COVID-19, mRNA, LNP-S, PF, 100 mcg/0.5mL dose or 50 mcg/0.25mL dose 1 completed Not Available [facility] 07/20/2023 05:08:29 SARS-COV-2 (COVID-19) vaccine, UNSPECIFIED 1 completed Not Available [facility] 07/20/2023 05:08:29 SARS-COV-2 (COVID-19) vaccine, UNSPECIFIED 1 completed Not Available [facility] 07/20/2023 05:08:29 Influenza, high-dose, quadrivalent, PF 2 completed Not Available [facility] 07/20/2023 05:08:29 Influenza, high-dose, quadrivalent, PF 1 completed Not Available [facility] 07/20/2023 05:08:29 Influenza, high-dose, quadrivalent, PF 0 completed Not Available [facility] 07/20/2023 05:08:29 Influenza, high-dose, trivalent, PF 9 completed Not Available [facility] 07/20/2023 05:08:29 pneumococcal polysaccharide PPV23 8 completed Not Available [facility] 07/20/2023 05:08:29 Influenza, high-dose, trivalent, PF 8 completed Not Available [facility] 07/20/2023 05:08:29 Influenza, split virus, quadrivalent, preservative 7 completed Not Available [facility] 07/20/2023 05:08:29 Influenza, high-dose, trivalent, PF 6 completed Not Available [facility] 07/20/2023 05:08:29 Influenza, split virus, quadrivalent, preservative 5 completed Not Available [facility] 07/20/2023 05:08:29 Pneumococcal conjugate PCV 13 5 completed Not Available [facility] 07/20/2023 05:08:29 Past Encounters Encounter ID Performer Location Encounter Start Date Encounter Closed Date Diagnosis/Indication Diagnosis SNOMED-CT Code Diagnosis ICD10 Code Diagnosis Note [id number] [facility] Internal Med [facility] [address] [address] 09/22/2020 00:00:00 09/22/2020 15:46:01 [id number] [facility] [place] [address] [place] [address], [facility] 4 [place] [address] 09/23/2020 00:00:00 09/23/2020 13:54:07 [id number] [facility] Internal [facility] [address] [address] 11/17/2020 00:00:00 11/17/2020 15:23:39 [id number] [facility] Orth[facility] [place] [address] [place] [address] 12/09/2020 00:00:00 12/19/2020 13:57:55 [id number] [facility] [place] [address] [facility], [address] [address] 12/23/2020 00:00:00 12/23/2020 14:10:16 [id number] [facility] [place] [address] [place] [address] 01/06/2021 00:00:00 01/06/2021 13:07:00 [id number] [facility] [place] [address] [place] [address], [facility] 4 [place] [address] 03/24/2021 00:00:00 03/24/2021 13:21:22 [id number] [facility] Internal Med [facility] [address], [facility] [address] [place] [address] 06/22/2021 00:00:00 06/22/2021 15:32:49 [id number] [facility] [place] [address], [address] [place] [address] 06/23/2021 00:00:00 06/23/2021 12:52:53 [id number] [facility] [place] [address], [address] [place] [address] 07/04/2021 00:00:00 07/04/2021 12:22:39 [id number] [facility] Internal Med [facility] [address], [facility] 24 [place] [address] 08/31/2021 00:00:00 08/31/2021 16:43:24 [id number] [facility] [place] [address], [facility] 4 [place] [address] 10/03/2021 00:00:00 10/03/2021 21:51:49 [id number] [facility] Internal Med [facility] [address], [facility] 24 [place] [address] 10/17/2021 00:00:00 10/17/2021 15:10:12 [id number] [facility] Internal Med [facility] [address], [facility] [address] [place] [address] 10/31/2021 00:00:00 10/31/2021 15:36:23 [id number] [facility] Internal Med [facility] [address], [facility] [address] [place] [address] 12/26/2021 00:00:00 12/26/2021 16:11:41 [id number] [facility] [place] [address], [facility] 4 [place] [address] 01/02/2022 00:00:00 01/02/2022 12:57:15 [id number] [facility] [place] [address], [facility] 4 [place] [address] 04/03/2022 00:00:00 04/03/2022 12:43:47 [id number] [facility] Internal Med [facility] [address] [address] 04/24/2022 00:00:00 04/24/2022 15:48:28 [id number] Latrice Arias MD [facility] Internal Med [facility] [address] [address] 08/21/2022 15:15:30 08/21/2022 15:49:02 Coronary arteriosclerosis 29387645 I25.10 Essential hypertension 13413988 I10 Hypercholesterolemia 136 [address]5914 E78.00 Dementia 57820427 F03.90 Prostate s pecific antigen above reference range 890520532 R97.20 Hyperglycemia 46637248 R 73.9 [id number] Latrice Arias MD [facility] Internal Med [facility] [address] [address] 09/11/2022 11:43:33 09/11/2022 12:19:00 Transition of care [id number] 105 Z75.8 Transition Care Management Questionna ireDate of Discharge 09/04/22Adm ission Date: 08/30/22Dat e of Contact: 1st attempt: 09/05/22Rea son for Admission: Armen rodriguez Facility Name: [facility] Facility Type inpatient acute care [facility] Diagnosis( es): Fall on same levelDiagn ostic Test(s) Performed: CT (CTCAPWC, CTCWO, CTHWO), Other: lab work, femur xray, urinalysis Did your hospital physician prescribe any new medicines upon discharge? noDid the hospital set up a follow up appointmen t with your PCP? no (Called into office and scheduled appointmen t for 09/11/22)Did the hospital set up an appointmen t up with any specialist s? noDid the hospital set up Home Health Care or Outpatient therapy? yes, with who?Did the hospital set you up with any equipment before discharge? noDo you have all the equipment you need to perform daily living activities ? yesPerform ed by: (include credential s) Elly Vallejo RN Coronary arteriosclerosis 65492806 I25.10 Essential hypertension 45447552 I10 Hypercholesterolemia 136 39228 E78.00 Hypothyroidism 95973373 E03.9 Dementia 40165782 F03.90 [id number] Juan Antonio Arevalo DPM [facility] Pod[facility] [place] [address] [facility], [address] [place] [address] 10/24/2022 12:34:43 10/24/2022 15:18:44 Dystrophia unguium 11928589 L60.3 Nails 1 through 10 were debrided with sharp mechanical debridemen t without incident. Nails were debrided and greater than 50% length and thickness where needed. [id number] Latrice Arias MD [facility] Internal Med [facility] [address] [place] [address] 12/18/2022 15:11:59 12/18/2022 16:01:15 Coronary arteriosclerosis 58115621 I25.10 Essential hypertension 47093668 I10 Hypercholesterolemia 136 99674 E78.00 Dementia 71272673 F03.90 [id number] Latrice Arias MD [facility] Internal Med [facility] [address] [address] 04/30/2023 14:27:58 04/30/2023 14:58:28 Coronary arteriosclerosis 62612733 I25.10 Essential hypertension 83336704 I10 Hypercholesterolemia 136 39706 E78.00 Gastroesop hageal reflux disease 459640127 K21.9 Dementia 21600101 F03.90 [id number] Latrice Arias MD [facility] Internal Med [facility] [address] [place] [address] 02/25/2024 16:44:46 02/25/2024 17:24:36 Coronary arteriosclerosis 19700277 I25.10 Essential hypertension 86543119 I10 Hyperlipidemia 02950002 E78.00 Hypothyroidism 93699628 E03.9 Edema of l ower extremity 703244106 R60.0 Dementia 34543139 F03.90 Health Concerns Section Related Observation LastModified by Organization Detai ls LastModified Time None Recorded Concern Status LastModified by Organization Details LastModified Time None Recorded Advance Directives Directive Y: Payers Encounter Date Sequence Insurance Name Policy Number Policy Velez Covered Member ID Velez Member ID Guarantor Name 09/11/2022 1 [place] Thom Turner [id number] Thom Grady [employer]bel[employer] 09/11/2022 2 [place] 113 Thom Turner [id number] Thom Grady [employer] 10/24/2022 1 [place] Thom Turner [id number] Thom Grady [employer] 10/24/2022 2 [place] 113 Thom Turner [id number] Thom Grady Yue 12/18/2022 1 [place] Thom Turner [id number] Thom Grady Yue 12/18/2022 2 [place] 113 Thom Grady [employer] [id number] Thom Grady Yue 04/30/2023 1 [place] Thom Turner [id number] Thom Grady [employer] 04/30/2023 2 [place] 113 Thom Grady [employer] [id number] Thom Grady Yue 02/25/2024 1 [place] Thom Turner [id number] Thom Grady Yue 02/25/2024 2 [place] 113 Thom Grady [employer] [id number] Thom Grady Yue Notes Date Note Type Note Provider Name and Address Organization Details Recorded Time 09/12/19 23 text/htm l Patient Name: Thom TurnerDate Of Service: Sunday ( 09.11.2022 ): 1940 Age: 82 Vital Signs:Blood Pressure: Sitting Rt. Arm 102/48Pulse: Sitting 88 /min and RegularRespirations: 12Height 65 in or 1.7 mWeight 157 lb or 71.2 kgBMI 26.1Temperature: 97.2 F or 36.2 CBlood Sugar: 98 mg% Chief Complaint: Addressed in HPI Problems or conditions discussed in the HPI were the only ones reviewed during the encounter.Only social and family history addressed in the HPI were reviewed during this encounter. Attendant(s): Constitutional and Systemic Symptoms: none Medication Reconciliation: from medication list. History of Present Illness #1. Coronary Artery Disease: There has been no change in frequency - duration - intensity in frequency, duration or intensity of chest pain. Other Complaints: none The frequency of anginal attacks is none at all. Additional Symptoms: none Therapy reviewed regarding cardiovascular management includes Aspirin, Fish Oil Caps, Zetia and Zocor #2. Essential Hypertension: Stage: Stage I Interval Neurological Complaints no headaches, dizziness, weakness, visual changes, ataxia, aphasia and apraxia. No shortness of breath, orthopnea or cardiovascular symptoms. No other symptoms related to end organ damage. Pressure has been under excellent control. Currently normal. No other end organ symptoms or findings. Therapy reviewed regarding management of hypertension and includes salt restriction. #3. Type II Hypercholesterolaemia: Currently taking medication and tolerating well. No interval complaints of any muscle pain or arthralgia. No significant liver changes with medications. Last lipid panel: fair control. Therapy reviewed regarding treatment of cholesterol management and include diet and Fish Oil Caps, Zetia and Zocor. #4. Hx of hypothyroidism currently stable. Heat intolerance: no Fatigue: no Weight gain: no Difficulty concentrating: no Muscle Symptoms: none Skin Texture: normal Skin Color: unchanged Currently taking levothyroxine. #5. Hx of dementia. Currently stable. There has been no clinical change in cognitive functions. Performance of activities of daily living has remained unchanged. Currently taking Namenda Mini-Cog Score: Severe Cognitive ImpairmentMedication List Reviewed and Reconciled 09/11/2022Quetiapine Fumarate 50 MG (TABLET - ORAL) One Tablet Am And Two Tablets PmAspirin 325 MG One DailyZyrtec 10 MG (TABLET - ORAL) One DailyZocor 80 MG (TABLET - ORAL) One Daily Hs For CholesterolZetia 10 MG (TABLET - ORAL) One Daily For CholesterolAricept 10 MG (TABLET - ORAL) One DailyPrilosec 40 MG (CAPSULE, DELAYED REL PELLETS - ORAL) One Daily For RefluxLevothyroxine 0.075 MG (TABLET - ORAL) One DailyTrazodone 25 MG One Tablet At BedtimeLexapro 10 MG TABLET, FILM COATED Once DailyVitamin C 500 MG DailyMultivitamin DailyVitamin D D3 1000 DailyVitamin E 400 Mg DailyFish Oil Caps 1000 Mg DailyNamenda 28 MG (CAPSULE, EXTENDED RELEASE - ORAL) DailyFlomax 0.4 MG (CAPSULE - ORAL) QdOxybutynin 5 MG TABLET Once DailyAleve 220 MG TABLET One Every Six Hours As NeededDivalproex Sodium 250 MG TABLET, DELAYED RELEASE One Twice A DayADRs List Reviewed 09/11/2022Toradol RashNiacin RashVaccination and Ltwvqmhbwpoy9129-73 Ujmpxnmgg7673-62 Covid Booster Mkziof2769-03 Covid Booster Jutefrb4519-56 Covid Gfnxbfw5463-57 Pneumovax 715085-01 Prevnar 13Surgical HistoryLumbar Epidural Injection, Lap Cholecystectomy, Lt. Inguinal Hernia, TonsillectomyPreventative Testing Confirmed by Our Iuryeao5608/29/2022 ALBUMIN 3.9 G/DL08/22/2022 PSA 8.61 NG/ML H008/22/2022 HAIC 6.2 % 08/21/2018 COLONOSCOPY (10 YEARS) 9009/05/2013 COLONOSCOPY AND UPPER ENDOSCOPY (5 YEARS) 09/05/2018Social HistoryDoes not smoke. 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 Father 86 from [place] prostate. One brother with ASHD and in good health. Latrice Arias MD [address], [facility] [address], [place], [address], [facility] 09/11/2022 12:17:20 10/25/19 23 text/htm l . Patient is an 82-year-old male who presents the office for elongated toenails. Patient presents from a long-term facility with his due to his dementia. Patient is unable to cut his nails and they are long. Patient denies any new pedal complaints. Patient denies any other issues. Juan Antonio Arevalo DPM [address], [address], [place], [address], [facility] 10/24/2022 15:09:47 12/19/19 23 text/htm l Patient Name: Thom Sheridan Of Service: Sunday ( 12.18.2022 ): 1940 Age: 82 Chief Complaint: Addressed in HPI Problems or conditions discussed in the HPI were the only ones reviewed during the encounter.Only social and family history addressed in the HPI were reviewed during this encounter. Attendant(s): Constitutional and Systemic Symptoms: none Medication Reconciliation: from medication list. History of Present Illness #1. Coronary Artery Disease: There has been no change in frequency - duration - intensity in frequency, duration or intensity of chest pain. Other Complaints: none The frequency of anginal attacks is none at all. Additional Symptoms: none Therapy reviewed regarding cardiovascular management includes Aspirin, Zetia and Zocor #2. Essential Hypertension: Stage: Stage I Interval Neurological Complaints no headaches, dizziness, weakness, visual changes, ataxia, aphasia and apraxia. No shortness of breath, orthopnea or cardiovascular symptoms. No other symptoms related to end organ damage. Pressure has been under excellent control. Currently normal. No other end organ symptoms or findings. Therapy reviewed regarding management of hypertension and includes salt restriction. #3. Type II Hypercholesterolaemia: Currently taking medication and tolerating well. No interval complaints of any muscle pain or arthralgia. No significant liver changes with medications. Last lipid panel: fair control. Therapy reviewed regarding treatment of cholesterol management and include diet and Zetia and Zocor. #4. Hx of dementia. Currently stable. There has been no clinical change in cognitive functions. Performance of activities of daily living has remained unchanged. Currently taking Aricept, Namenda and Quetiapine Fumarate Mini-Cog Score: Severe Cognitive ImpairmentMedication List Reviewed and Reconciled 12/18/2022Quetiapine Fumarate 50 MG (TABLET - ORAL) One Tablet Am And Two Tablets PmAspirin 325 MG One DailyZyrtec 10 MG (TABLET - ORAL) One DailyZocor 80 MG (TABLET - ORAL) One Daily Hs For CholesterolZetia 10 MG (TABLET - ORAL) One Daily For CholesterolAricept 10 MG (TABLET - ORAL) One DailyPrilosec 40 MG (CAPSULE, DELAYED REL PELLETS - ORAL) One Daily For RefluxLevothyroxine 0.075 MG (TABLET - ORAL) One DailyTrazodone 25 MG One Tablet At BedtimeLexapro 10 MG TABLET, FILM COATED Once DailyVitamin C 500 MG DailyMultivitamin DailyVitamin D D3 1000 DailyVitamin E 400 Mg DailyFish Oil Caps 1000 Mg DailyNamenda 28 MG (CAPSULE, EXTENDED RELEASE - ORAL) DailyFlomax 0.4 MG (CAPSULE - ORAL) QdOxybutynin 5 MG TABLET Once DailyAleve 220 MG TABLET One Every Six Hours As NeededDivalproex Sodium 250 MG TABLET, DELAYED RELEASE One Twice A DayADRs List Reviewed 12/18/2022Toradol RashNiacin RashVaccination and Ztkswygdsfjy6914-43 Uhhufwswo8421-51 Covid Booster Ndqydu3930-60 Covid Booster Ewlcryq1113-53 Covid Jmgrqqi5198-04 Pneumovax 474982-75 Prevnar 13Surgical HistoryLumbar Epidural Injection, Lap Cholecystectomy, Lt. Inguinal Hernia, TonsillectomyPreventative Testing Confirmed by Our Eytecjo2211/27/2022 ALBUMIN 3.7 G/DL08/22/2022 PSA 8.61 NG/ML H008/22/2022 HAIC 6.2 % H008/21/2018 COLONOSCOPY (10 YEARS) 9009/05/2013 COLONOSCOPY AND UPPER ENDOSCOPY (5 YEARS) 09/05/2018Social HistoryDoes not smoke. 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 Father 86 from [place] prostate. One brother with ASHD and in good health. Latrice Arias MD [address] [facility], [facility] [address], [place], [address], [facility] 12/18/2022 15:56:00 04/30/20 23 text/htm l Patient Name: Thom Sheridan Of Service: Sunday ( 04.30.2023 ): 1940 Age: 83 There has been approximately a 9 lb weight gain since 09/11/2022. This represents approximately a 5.7% change in weight. Weight change attributable to lifestyle changes. Vital Signs:Blood Pressure: Sitting Rt. Arm 140/60Pulse: Sitting 74 /min and RegularRespiratory Rate: 12Height 65 in or 1.7 mWeight 166 lb or 75.3 kgBMI 27.6Temperature: 97 F or 36.1 CPulse Oximetry: 93 % at rest on no oxygen Chief Complaint: Addressed in HPI Problems or conditions discussed in the HPI were the only ones reviewed during the encounter.Only social and family history addressed in the HPI were reviewed during this encounter. Attendant(s): NoneConstitutional and Systemic Symptoms:none Medication Reconciliation: from medication list. History of Present Illness #1. Coronary Artery Disease: There has been no change in frequency - duration - intensity in frequency, duration or intensity of chest pain. Other Complaints: none The frequency of anginal attacks is several times per week. Additional Symptoms: none Therapy reviewed regarding cardiovascular management includes no medications #2. Essential Hypertension: Stage: Stage I Interval Neurological Complaints no headaches, dizziness, weakness, visual changes, ataxia, aphasia and apraxia. No shortness of breath, orthopnea or cardiovascular symptoms. No other symptoms related to end organ damage. Pressure has been under excellent control. Currently normal. No other end organ symptoms or findings. Therapy reviewed regarding management of hypertension and includes salt restriction. #3. Type II Hypercholesterolaemia: Currently Stopped medication due to his progression cognitive dysfunction.. No interval complaints of any muscle pain or arthralgia. No significant liver changes with medications. Last lipid panel: fair control. Therapy reviewed regarding treatment of cholesterol management and include diet. #4. Hx of esophageal reflux currently stable. Hx of Complications: none The severity, duration and intensity of symptoms have improved. Frequency: most meals Treatment consists medications taken on a regular basis. Current therapy includes Prilosec. There has been no nausea. No change in he frequency or intensity of symptoms. Has had no melena. Has had no hematemesis. Discuss the possibility of trying to reduce the frequency of the use of any PPI inhibitors or H2 antagonist to see if symptoms can be controlled with last intensive therapy #5. Hx of dementia. Currently stable. There has been no clinical change in cognitive functions. Performance of activities of daily living has remained unchanged. Currently taking Aricept and Namenda Mini-Cog Score: Severe Cognitive ImpairmentMedication List Reviewed and Reconciled 04/30/2023Quetiapine Fumarate 50 MG (TABLET - ORAL) One Tablet Am And Two Tablets PmZyrtec 10 MG (TABLET - ORAL) One DailyAricept 10 MG (TABLET - ORAL) One DailyPrilosec 40 MG (CAPSULE, DELAYED REL PELLETS - ORAL) One Daily For RefluxLevothyroxine 0.075 MG (TABLET - ORAL) One DailyTrazodone 50 MG TABLET One Tablet At BedtimeLexapro 10 MG TABLET, FILM COATED Once DailyNamenda 28 MG (CAPSULE, EXTENDED RELEASE - ORAL) DailyFlomax 0.4 MG (CAPSULE - ORAL) QdDivalproex Sodium 250 MG TABLET, DELAYED RELEASE One Twice A DayADRs List Reviewed 04/30/2023Toradol RashNiacin RashVaccination and Eruvqzqytbgj7285-73 Bdcezblaw6751-76 Covid Booster Neeutl4346-78 Covid Booster Wpwllxu9923-59 Covid Eyxulcn6116-75 Fuawabsun5329-82 Prevnar 13 GcSurgical HistoryLumbar Epidural Injection, Lap Cholecystectomy, Lt. Inguinal Hernia, TonsillectomyPreventative Testing Confirmed by Our Accjocv7611/27/2022 ALBUMIN 3.7 G/DL N008/22/2022 PSA 8.61 NG/ML H008/22/2022 HAIC 6.2 % H008/21/2018 COLONOSCOPY (10 YEARS) 9009/05/2013 COLONOSCOPY AND UPPER ENDOSCOPY (5 YEARS) 09/05/2018Social HistoryDoes not smoke. 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 Father 86 from [place] prostate. One brother with ASHD and in good health. Latrice Arias MD [address] [place] [address], [facility] [address], [place], [address], [facility] 04/30/2023 14:55:13 02/25/20 24 text/htm l Patient Name: Thom Sheridan Of Service: Sunday ( 02.25.2024 ): 1940 Age: 84 Vital Signs:Blood Pressure: Sitting Rt. Arm 120/70Pulse: Sitting 65 /min and RegularRespiratory Rate: 14 Chief Complaint: Addressed in HPI Problems or conditions discussed in the HPI were the only ones reviewed during the encounter.Only social and family history addressed in the HPI were reviewed during this encounter. Attendant(s): WifeConstitutional and Systemic Symptoms:none Medication Reconciliation: from medication list. History of Present Illness #1. Coronary Artery Disease: There has been no change in frequency - duration - intensity in frequency, duration or intensity of chest pain. Other Complaints: none The frequency of anginal attacks is none at all. Additional Symptoms: none Therapy reviewed regarding cardiovascular management includes Lasix, Metolazone and Norvasc #2. Essential Hypertension: Stage: Stage I Interval Neurological Complaints no headaches, dizziness, weakness, visual changes, ataxia, aphasia and apraxia. No shortness of breath, orthopnea or cardiovascular symptoms. No other symptoms related to end organ damage. Pressure has been under excellent control. Currently normal. No other end organ symptoms or findings. Therapy reviewed regarding management of hypertension and includes salt restriction. #3. History of hypercholesterolaemia: History of the high cholesterol. Not taking any medications and being controlled by diet. No interval complaints of any chest pain, shortness of breath, orthopnea or other cardiovascular complaints. Last lipid panel: Not taking medications due to his advanced dementia. #4. Hx of hypothyroidism currently stable. Heat intolerance: no Fatigue: no Weight gain: no Difficulty concentrating: no Muscle Symptoms: none Skin Texture: normal Skin Color: normal Currently taking synthroid. #5. Hx of dementia. Currently stable. There has been no clinical change in cognitive functions. Performance of activities of daily living has remained unchanged. Currently taking Aricept and Namenda Mini-Cog Score: Severe Cognitive Impairment Active Medication ListQuetiapine Fumarate 50 MG (TABLET - ORAL) One Tablet Am And Two Tablets PmMetolazone 2.5 MG TABLET One Daily PrnPotassium Chloride 2.98; 9 G/1000ML; INJECTION, SOLUTION One DailyAricept 10 MG (TABLET - ORAL) One DailyPrilosec 40 MG (CAPSULE, DELAYED REL PELLETS - ORAL) One Daily For RefluxLasix 40 MG TABLET Once DailyNorvasc 5MG Once DailyLevothyroxine 0.075 MG (TABLET - ORAL) One DailyLexapro 10 MG TABLET, FILM COATED Once DailyNamenda 28 MG (CAPSULE, EXTENDED RELEASE - ORAL) DailyFlomax 0.4 MG (CAPSULE - ORAL) QdDivalproex Sodium 250 MG TABLET, DELAYED RELEASE One Twice A Day Adverse Drug Reactions ReviewedToradol RashNiacin Rash Vaccination and [id number] [id number] Covid Booster Nvlqop8406-89 Covid Booster Bytpyna8298-75 Covid Jfgkcdw0057-71 Tnaksnlxf0705-35 Prevnar 13 Gc Surgical Fmtwtxd3497-70 Lumbar Epidural Tmjfectuo8593-86 Lap Puqtdhhxljveism2644-60 Lt. Inguinal Lghmnk6595-12 Tonsillectomy Preventative Testing( ) 11/27/2022 Albumin 3.7 G/DL N( ) 08/22/2022 PSA 8.61 NG/ML H 08/22/2024( ) 08/22/2022 HAIC 6.2 % H( ) 08/21/2018 Colonoscopy (10 Years) 08/21/2028( ) 09/05/2013 Colonoscopy And Upper Endoscopy (5 Years) 09/05/2018 Social HistoryDoes not smoke. 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 Family HistoryMother 82 from complications of Alzheimer's. Father 86 from CA prostate. One brother with ASHD and in good health. Latrice Arias MD [address] [place] [address], [facility] [address], [place], [address], [facility] [employer] 02/25/2024 17:23:45
--- OUTSIDE RECORDS SUMMARY | 2024-08-28 20:39 | XMS_ITS | CONTINUITY OF CARE DOCUMENT ---
Author Name nakia yee Address Unknown Organization [facility] Address [address] [place] [address] Phone [phone] Care Team Providers Care Lesson Instructor Name Role Phone Cordell Antunez MD Unavailable [phone] LATRICE ARIAS MD Unavailable LATRICE ARIAS MD Unavailable PROBLEMS Condition Status Date Provider Notes Other symptoms involving cardiovascular system completed - Cordell Antunez MD Coronary Heart Disease active ? Cordell Garcia Hyperlipidemia active ? Cordell Antunez MD Hypertension active ? Cordell Antunez MD Aortic regurgitation active Cordell Antunez MD Family History of CVA or Stroke: active ? Cordell Antunez MD Myocardial Infarction active Cordell Antunez MD 1994 - two events - involving the RCA Tobacco use, quit active Cordell Antunez MD Dizziness active Cordell Antunez MD Bradycardia sinus active Cordell Antunez MD Mitral regurgitation active Cordell Antunez MD Preop exam active Cordell Antunez MD Carotid artery stenosis, <50% ICA b/l active Joshua Tripp TIA active Cordell Antunez MD ENCOUNTERS Date Type Provider Location Encounter Diag nosis 0 - 7 In-person encounter Office Visit Cordell Antunez MD [facility] Preop exam 5 - 5 In-person encounter Office Visit Cordell Antunez MD [facility] TIA 8 - 2 In-person encounter Office Visit Cordell Antunez MD [facility] Preop exam 8 - 1 In-person encounter Office Visit Cordell Antunez MD [facility] Aortic regurgitation 7 - 3 In-person encounter Office Visit Cordell Antunez MD [facility] Carotid artery stenosis, <50% ICA b/l 6 - 7 In-person encounter Office Visit Cordell Antunez MD [facility] DizzinessBradycardia sinusMitral regurgitation 9 - 2 In-person encounter Office Visit Cordell Antunez MD [facility] Other symptoms involving cardiovascular systemAortic regurgitationFamily History of CVA or Stroke:Myocardial InfarctionTobacco use, quit 3 - 5 In-person encounter Office Visit Cordell Antunez MD [facility] Aortic regurgitation 7 - 7 In-person encounter Office Visit Cordell Antunez MD [facility] Coronary Heart DiseaseHyperlipidemiaHypertension VITAL SIGNS Date Observation Value Provider Body Mass Index (Ratio) 23.49 kg/m2 Tariq Tripp blood pressure, diastolic, left arm 60 mm [Hg] Candi Block blood pressure, systolic, left arm 138 mm [Hg] Candi Block blood pressure, diastolic, right arm 62 m m[Hg] Candi Block blood pressure, systolic, right arm 146 m m[Hg] Candi Block blood pressure, diastolic 62 mm[Hg] Br ittany Block blood pressure, systolic 146 mm[Hg] Renetta ttany Block weight E&M 150 [lb_av] Candi Block pulse rate 79 /min Candi Block oxygen saturation, oximetry 98 % Candi Block respiratory rate E&M 16 /min [facility] Block height E&M 67 [in_i] Candi Block Body Mass Index (Ratio) 24.43 kg/m2 Tariq Tripp blood pressure, cuff size regular Cy nicolasa David blood pressure, diastolic 58 mm[Hg] Dangelo David blood pressure, systolic 158 mm[Hg] Loren David oxygen saturation, oximetry 97 % Elena David respiratory rate E&M 16 /min Elena David pulse rate 75 /min Elena leiva weight E&M 156 [lb_av] Elena Bran l height E&M 67 [in_i] Elena Bran l Body Mass Index (Ratio) 24.84 kg/m2 Tariq Tripp blood pressure, diastolic 58 mm[Hg] Kendell sergioTeresaervin MccainJain blood pressure, systolic 169 mm[Hg] Shaila Jain oxygen saturation, oximetry 97 % Len Jain respiratory rate E&M 18 /min LiliaAmy griffith Jain pulse rate 80 /min Len ni weight E&M 158.6 [lb_av] Len mills height E&M 67 [in_i] Len ni Body Mass Index (Ratio) 24.62 kg/m2 Tariq Tripp blood pressure, diastolic 65 mm[Hg] Kendell Avelina Jain blood pressure, systolic 164 mm[Hg] Shaial Mccainenson oxygen saturation, oximetry 97 % LenDestini Mccainenson respiratory rate E&M 18 /min Jose Jain pulse rate 70 /min Len ni weight E&M 157.2 [lb_av] Len mills height E&M 67 [in_i] Len ni blood pressure, resting Yes Tariq Tripp Body Mass Index (Ratio) 24.27 kg/m2 Tariq Tripp blood pressure, cuff size regular Ke rri Zoltanneleonie blood pressure, diastolic 70 mm[Hg] Ke rri Gruenenfnata blood pressure, systolic 162 mm[Hg] Otto ri Quoc oxygen saturation, oximetry 96 % Yanira Quoc respiratory rate E&M 18 /min Yanira G matheus pulse rate 64 /min Yanira Grbuffy cruzer weight E&M 155 [lb_av] Yanira Grravindernekeie anthonyer height E&M 67 [in_i] Yanira Johnson [facility] blood pressure, diastolic 60 mm[Hg] Kendell Quan Jain blood pressure, systolic 140 mm[Hg] Shaila Farmer Jain pulse rate 56 /min Len Bui raine oxygen saturation, oximetry 97 % Len Jain respiratory rate E&M 16 /min Jose griffith Jain Body Mass Index (Ratio) 24.74 kg/m2 Lilia Jain weight E&M 158 [lb_av] Len Bui raine blood pressure, diastolic 62 mm[Hg] Ke rri Quoc blood pressure, systolic 169 mm[Hg] Otto ri Quoc pulse rate 53 /min Yanira Johnson cruz oxygen saturation, oximetry 96 % Yanira Quoc respiratory rate E&M 16 /min Yanira G matheus Body Mass Index (Ratio) 23.65 kg/m2 Urbina i Quoc weight E&M 151 [lb_av] Yanira Johnson cruzer blood pressure, diastolic, left arm 60 mm [Hg] Aneatris David blood pressure, systolic, left arm 129 mm [Hg] Aneatris Brown blood pressure, diastolic, right arm 63 m m[Hg] Yen [facility] blood pressure, systolic, right arm 139 m m[Hg] Yen [facility] Body Mass Index (Ratio) 24.90 kg/m2 Kristy alex [facility] blood pressure, diastolic 60 mm[Hg] An tigist Hernandez blood pressure, systolic 129 mm[Hg] Tere cummins [facility] pulse rate 65 /min Yen [facility] oxygen saturation, oximetry 96 % [facility] respiratory rate E&M 16 /min Ananthi s [facility] weight E&M 159 [lb_av] [facility] Body Mass Index (Ratio) 24.59 kg/m2 Kristy alex [facility] blood pressure, diastolic 67 mm[Hg] An tigist [facility] blood pressure, systolic 152 mm[Hg] Tere cummins [facility] pulse rate 60 /min [facility] oxygen saturation, oximetry 97 % [facility] respiratory rate E&M 18 /min Florentino s [facility] weight E&M 157 [lb_av] [facility] height E&M 67 [in_i] [facility] ALLERGIES Allergy Name Onset Date Reaction Criticality Status [facility] Unable to assess critical ity suspended [facility] High Criticality aborted RESULTS Date Observation Value Provider Reference Range Interpretation Location bilirubin, serum, total 0.60 mg/dL [facility] alkaline phosphatase, serum 87 1/L [facility] alanine aminotransferase (SGPT), serum 27 1/L [facility] aspartate aminotransferase (SGOT), serum 36 1/L [facility] magnesium, serum 2.1 mg/dL [facility] blood glucose, random 91 mg/dL [facility] creatinine, serum 0.88 mg/dL [facility] urea nitrogen, blood 19 mg/dL [facility] potassium, serum 4.8 mmol/L [facility] sodium, serum 139 mmol/L [facility] platelet count 189 10*3/uL [facility] hematocrit, blood 35.2 % [facility] hemoglobin, blood 10.5 g/dL [facility] leukocyte count, blood 5.2 10*3/mm3 [facility] thyroid stimulating hormone, serum 1.340 u[IU]/mL [facility] thyroxine, serum, free 0.89 ng/dL [facility] triglyceride, serum, fasting 81 mg/dL [facility] HDL cholesterol, serum 43 mg/dL [facility] cholesterol, serum 113 mg/dL [facility] LDL cholesterol, serum 54 mg/dL [facility] thyroid stimulating hormone, serum 1.090 u[IU]/mL [facility] thyroxine, serum, free 0.78 ng/dL [facility] triglyceride, serum, fasting 94 mg/dL [facility] HDL cholesterol, serum 38 mg/dL [facility] LDL cholesterol, serum 62 mg/dL [facility] cholesterol, serum 119 mg/dL [facility] platelet count 174 10*3/uL [facility] red blood cell distribution width 15.7 % [facility] mean corpuscular hemoglobin concentration, RBC 30.2 g/dL [facility] mean corpuscular hemoglobin, RBC 27.3 pg [facility] mean corpuscular volume, RBC 90.4 fL [facility] hematocrit, blood 34.8 % [facility] hemoglobin, blood 10.5 g/dL [facility] erythrocyte (RBC) count 3.85 10*6/mm3 [facility] leukocyte count, blood 4.6 10*3/mm3 [facility] protein, total, serum 6.7 g/dL [facility] albumin, serum 4.0 g/dL [facility] bilirubin, serum, total 0.40 mg/dL [facility] alkaline phosphatase, serum 97 1/L [facility] alanine aminotransferase (SGPT), serum 24 1/L [facility] aspartate aminotransferase (SGOT), serum 30 1/L [facility] calcium, serum 9.1 mg/dL [facility] blood glucose, random 93 mg/dL [facility] creatinine, serum 0.97 mg/dL [facility] urea nitrogen, blood 21 mg/dL [facility] carbon dioxide, serum, total 31 mmol/L [facility] chloride, serum 101 mmol/L [facility] potassium, serum 4.7 mmol/L [facility] sodium, serum 138 mmol/L [facility] LDL cholesterol, serum 66 mg/dL Cordell Antunez MD international normalized ratio (INR) 1.0 [facility] 0.9-1.1 prothrombin time (patient) 10.0 Seconds [facility] 9.0-11.5 platelet count 176 THOUSAND/U L [facility] [id number] 5975/09/ 18 Absolute Basophils 0.0 CELLS/UL [facility] 0.0-0.2 Absolute Monocytes 0.6 CELLS/UL [facility] 0.2-1.0 Absolute Lymphocytes 1.50 CELLS/UL [facility] 0.85-3.90 Absolute Neutrophils 3.3 CELLS/UL [facility] 1.5-7.8 mean corpuscular volume, RBC 100 fL [facility] 75-100 mean corpuscular hemoglobin concentration, RBC 32 G/DL [facility] 31-38 mean corpuscular hemoglobin, RBC 32 pg [facility] 25-35 hematocrit, blood 40 % [facility] 35-55 hemoglobin, blood 12.9 [facility] erythrocyte count, whole blood 4.0 MILLION/UL [facility] 3.5-5.5 very low density lipoproteins 25.2 mg/dL [facility] 5.0-40.0 LDL/HDL (low-density lipoprotein/high-de nsity lipoprotein) ratio 2 mg/dL [facility] 0-5 lipoprotein, beta, serum, point, quantitative, calculated 66 mg/dL [facility] 0-100 HDL cholesterol, serum 36 mg/dL [facility] 35-55 cholesterol, serum 127 mg/dL [facility] 0-200 triglyceride, serum, fasting 126 mg/dL [facility] 0-150 Estimated Glomerular Filtration Rate (calc) 69 (?) [facility] >59 chloride, serum 102 mmol/L [facility] 98-107 potassium, serum 4.7 mmol/L [facility] 3.5-5.1 sodium, serum 142 mmol/L [facility] [id number] 7707/09/ 18 creatinine, serum 1.1 mg/dL [facility] 0.7-1.2 carbon dioxide, venous blood 30 mmol/L [facility] 23-31 calcium, serum 9.4 mg/dL [facility] 8.6-10.2 urea nitrogen, blood 19 mg/dL [facility] 8-23 blood glucose, random 69 mg/dL [facility] 74-99 Low HISTORY OF MEDICATION USE Medication Status Instructions Dates Provider Indications Com ments NITROLINGUAL 0.4 MG/SPRAY TRANSLINGUAL SOLUTION completed 1 spray as needed for chest discomfort - Candi Alcazar NAMENDA XR 28 MG ORAL CAPSULE EXTENDED RELEASE 24 HOUR active once daily Len Jain DONEPEZIL HCL 10 MG ORAL TABLET active take one pill at bedtime Yanira Kumari [facility] VITAMIN C TABS active 500 mg 1 tab daily Aneatris Brown FISH OIL CAPSULE active ONE TAB. DAILY Aneatris Brown [facility] E CAPSULE active 1 tab daily Aneatris Brown VITAMIN D TABLET active 1000 international units 1 tab daily Aneatris Brown MULTIVITAMINS ORAL CAPSULE active ONE TAB. DAILY Aneatris David HYDROCODONE-ACETA MINOPHEN 7.5-325 MG ORAL TABLET completed prn for pain - Elena Frankie ZETIA 10 MG ORAL TABLET active 1 tab daily Anemaria g Hernandez ASPIRIN 325 MG ORAL TABLET active ONE TAB. DAILY Anemaria g Hernandez BECONASE AQ 42 MCG/SPRAY NASAL SUSPENSION completed take as directed - Yanira Kumari CETIRIZINE HCL 10 MG ORAL TABLET active 1 tab daily Aneatris Brown TRAZODONE HCL 100 MG ORAL TABLET active 1 tab at bedtime Aneatris Brown LISINOPRIL 10MG active TAKE ONE TABLET DAILY Michelle Chrun SIMVASTATIN 80 MG ORAL TABLET active 1 tab daily Yen Hernandez METOPROLOL SUCCINATE ER 100 MG ORAL TABLET EXTENDED RELEASE 24 HOUR completed Take half of a tablet in the morning - Yanira Kumari CYCLOBENZAPRINE HCL 10 MG ORAL TABLET completed take one pill as needed - Candi Inge OMEPRAZOLE 40 MG ORAL CAPSULE DELAYED RELEASE active take one pill a day Yanira Kumari SOCIAL HISTORY Date Observation Value Provider social history reviewed E&M i ewed - no changes required Joshua Tripp alcohol use no [facility] smoking, year quit 1969 [facility] number of years as a smoker 9 a Candi Block smoking, date started 1960 [place] Block smoking history, tot al pack/day 1/ Candi Block cigarette use yes [facility] smoking status Former smoker Candi [facility] social history reviewed E&M i ewed - no changes required Cordell Antunez MD alcohol use no Elena leiva smoking, year quit 1970 Elena agrawal number of years as a smoker 9 a Elena David smoking, date started 1960 Lalitha David smoking history, tot al pack/day 1/4 Elena Frankie cigarette use yes Elena Portillo michael smoking status Former smoker Elena garcia social history reviewed E&M revi ewed - no changes required Joshua Josee alcohol use no Len Bui nson smoking, year quit 1970 Len Jain number of years as a smoker 9 a Len Jain smoking, date started 1960 Esteban Jain smoking history, tot al pack/day 06/14 Len Jain cigarette use yes Len mills smoking status Former smoker Len Sandy social history reviewed E&M revi ewed - no changes required Joshua Josee alcohol use no eLn Bui nson smoking, year quit 1970 Len Jain number of years as a smoker 9 a Len Jain smoking, date started 1960 Esteban Jain smoking history, tot al pack/day 06/14 Len Jain cigarette use yes Len mills smoking status Former smoker Len Sandy number of years as a smoker 9 a Joshua Josee smoking status Former smoker Joshua [facility] social history reviewed E&M revi ewed - no changes required [facility] alcohol use no Yanira johnson smoking, year quit 1970 Yanira ferro smoking, date started 1960 Yanira Kumari smoking history, tot al pack/day 06/14 Joshua Josee cigarette use yes Yanira peace social history E&M Smoking Histo ry: P atient is a former smoker. Cordell Antunez MD social history reviewed E&M revi ewed - no changes required Cordell Antunez MD alcohol use no Len Bui nson smoking, year quit 1970 Len Jain smoking, date started 1960 Esteban Jain smoking history, tot al pack/year 51 Len Jain smoking history, tot al pack/day 5 cigs Len Jain cigarette use yes Len mills smoking status Former smoker Len Sandy social history E&M Smoking Histo ry: Radha dunn is a former smoker. Cordell Antunez MD social history reviewed E&M revi ewed - no changes required Cordell Antunez MD alcohol use no Yanira Johnosn lder smoking status Former smoker Yanira Kimberly nfelder smoking history, tot al pack/year 51 Yodit Mitchell smoking/tobacco cess ation, patient education and counseling yes Cordell Antunez MD smoking, year quit 1970 Cordell foster MD smoking, date started 1960 Cordell Antunez MD smoking history, tot al pack/day 5 cigs Cordell Antunez MD cigarette use yes Cordell Antunez MD smoking status Former smoker Cordell Antunez MD social history reviewed E&M revi ewed - no changes required Cordell Antunez MD social history reviewed E&M revi ewed - no changes required Yodit Mitchell smoking/tobacco cess ation, patient education and counseling yes Cordell Antunez MD smoking, year quit 1970 Yen Hernandez smoking, date started 1960 Aneatr is David smoking history, tot al pack/day 5 cigs Yen Hernandez cigarette use yes Yen Hernandez smoking status Former smoker Yen Betts wn FUNCTIONAL STATUS Date Observation Value Provider HRA, CV Assess/Plan, Angina (inactive) Management Plan continue current therapy Joshua Tripp HRA, CV Assess/Plan, Angina (inactive) Management Plan continue current therapy Cordell Antunez MD HRA, CV Assess/Plan, Angina (inactive) Management Plan continue current therapy Joshua Josee HRA, CV Assess/Plan, Angina (inactive) Management Plan continue current therapy Joshua Josee HRA, CV Assess/Plan, Angina (inactive) Management Plan continue current therapy Joshua Josee HRA, CV Assess/Plan, Angina (inactive) Management Plan continue current therapy Cordell Antunez MD FAMILY HISTORY Family Member Condition Father Family History of CV A or Stroke: Father Family History of Pr ostate Cancer: Mother Family History of Hy pertension: Mother Family History of Di abetes: INSURANCE PROVIDERS Payer name Policy type / Coverage type [employer] party ID [facility] [id number] [place] MED[place] Medicare [id number] ADVANCE DIRECTIVES Name Date DISCUSSED - NO DECISION MADE TREATMENT PLAN Date Name Performer Cardiology:No recurrence. Bashir Peters Cardiology:LDL: 54 ( 09/11/2018) HDL: 43 (09/11/2018) CHOL: 113 (09/11/2018) TRI (09/11/2018) His updated medication list for this problem includes: Zetia 10 Mg Oral Tablet (Ezetimibe) ..... 1 tab daily Simvastatin 80 Mg Oral Tablet (Simvastatin) ..... 1 tab daily Joshua Tripp Cardiology:BP today: 146/62 P rior BP: 158/58 (03/25/2018) His updated medication list for this problem includes: Lisinopril 10 Mg Oral Tablet (Lisinopril) ..... One tab. daily Joshua Tripp Cardiology:Pt denies chest pain or SOB. He's a candidate for hip surgery. He's cleared from cardiac standpoint for surgery. Joshua Tripp Cardiology:Pt denies chest pain or SOB. His updated medication list for this problem includes: Aspirin 325 Mg Oral Tablet (Aspirin) ..... One tab. daily Lisinopril 10 Mg Oral Tablet (Lisinopril) ..... One tab. daily [facility] Cardiology follow up :His updated medication list for this problem includes: Zetia 10 Mg Oral Tablet (Ezetimibe) ..... 1 tab daily Simvastatin 80 Mg Oral Tablet (Simvastatin) ..... 1 tab daily [facility] Cardiology follow up :His updated medication list for this problem includes: Nitrolingual 0.4 Mg/spray Translingual Solution (Nitroglycerin) ..... 1 spray as needed for chest discomfort Aspirin 325 Mg Oral Tablet (Aspirin) ..... One tab. daily Lisinopril 10 Mg Oral Tablet (Lisinopril) ..... One tab. daily [facility] Cardiology follow up :Recommending to increase Lisinopril to 20mg daily for better BP control. BP today: 158/58 P rior BP: 169/58 (03/28/2017) His updated medication list for this problem includes: Lisinopril 10 Mg Oral Tablet (Lisinopril) ..... One tab. daily [facility] Cardiology follow up :Pt had a TIA and was treated by Dr. Arias. According to the family, carotid CT angio was negative. He denies palpitations. He made a full recovery. [facility] Cardiology:CHOL: 127 (02/26/2017) HDL: 36 (02/26/2017) T (02/26/2017) LDL: 66 (02/26/2017) His updated medication list for this problem includes: Zetia 10 Mg Tabs (Ezetimibe) ..... 1 tab daily Simvastatin 80 Mg Tabs (Simvastatin) ..... 1 tab daily [facility] Cardiology:BP is pro vated today and we will increase Lisinopril to 10mg daily. BP today: 169/58 P rior BP: 164/65 (02/26/2017) His updated medication list for this problem includes: Lisinopril 10 Mg Tabs (Lisinopril) ..... One tab. daily [facility] Cardiology:Cardiac c ath revealed 60% stenosis of the RCA and normal EF. The pt underwent orthopedic surgery successfully without cardiac complications. His updated medication list for this problem includes: Nitrolingual 0.4 Mg/spray Soln (Nitroglycerin) ..... 1 spray as needed for chest discomfort Aspirin 325 Mg Tabs (Aspirin) ..... One tab. daily Lisinopril 10 Mg Tabs (Lisinopril) ..... One tab. daily [facility] Cardiology:TTE showed mild/moder ate aortic regurg. [facility] Cardiology:Orders: L IPID PANEL ([id number]) His updated medication list for this problem includes: Zetia 10 Mg Tabs (Ezetimibe) ..... 1 tab daily Simvastatin 80 Mg Tabs (Simvastatin) ..... 1 tab daily [facility] Cardiology:BP today: 164/65 P rior BP: 162/70 (01/15/2017) His updated medication list for this problem includes: Lisinopril 5 Mg Tabs (Lisinopril) ..... 1 tab daily [facility] Cardiology:Myoview s can revealed a small fixed defect involving the inferior wall consistent with infarct. Will proceed to cardiac cath. [facility] Cardiology:Myoview s can revealed a small fixed defect involving the inferior wall consistent with infarct. Will proceed to cardiac cath. His updated medication list for this problem includes: Nitrolingual 0.4 Mg/spray Soln (Nitroglycerin) ..... 1 spray as needed for chest discomfort Aspirin 325 Mg Tabs (Aspirin) ..... One tab. daily Lisinopril 5 Mg Tabs (Lisinopril) ..... 1 tab daily [facility] Cardiology Follow up :His updated medication list for this problem includes: Zetia 10 Mg Tabs (Ezetimibe) ..... 1 tab daily Simvastatin 80 Mg Tabs (Simvastatin) ..... 1 tab daily [facility] Cardiology Follow up :BP today: 162/70 P rior BP: 140/60 (04/05/2016) The following medications were removed from the medication list: Metoprolol Succinate Er 100 Mg [id number] (Metoprolol succinate) ..... Take half of a tablet in the morning His updated medication list for this problem includes: Lisinopril 5 Mg Tabs (Lisinopril) ..... 1 tab daily [facility] Cardiology Follow up :EKG today shows sinus bradycardia (HR of 59 BPM). [facility] Cardiology Follow up :Orders: C omplete Echo (CPT-[id number]) [facility] Cardiology Follow up :Orders: C omplete Echo (CPT-[id number]) [facility] Cardiology Follow up :The pt is now a candidate for orthopedic surgery and cardiac evaluation was requested. Will obtain an echo and stress test. [facility] Cardiology Follow up :The pt is now a candidate for orthopedic surgery and cardiac evaluation was requested. Will obtain an echo and stress test. No chest pain or SOB. The following medications were removed from the medication list: Metoprolol Succinate Er 100 Mg [id number] (Metoprolol succinate) ..... Take half of a tablet in the morning His updated medication list for this problem includes: Nitrolingual 0.4 Mg/spray Soln (Nitroglycerin) ..... 1 spray as needed for chest discomfort Aspirin 325 Mg Tabs (Aspirin) ..... One tab. daily Lisinopril 5 Mg Tabs (Lisinopril) ..... 1 tab daily Joshua [facility] Cardiology:BP today: 140/60 P rior BP: 169/62 (03/29/2015) His updated medication list for this problem includes: Aspirin 325 Mg Tabs (Aspirin) ..... One tab. daily Lisinopril 5 Mg Tabs (Lisinopril) ..... 1 tab daily Metoprolol Succinate Er 100 Mg [id number] (Metoprolol succinate) ..... Take half of a tablet in the morning Cordell Antunez MD Cardiology Cordell Antunez MD Cardiology:Mild to moderate on e cho done today. Cordell Antunez MD Cardiology:Moderate on echo done today. Cordell Antunez MD Cardiology:Will redu ce Metoprolol to 50mg daily and may consider stopping it completely. Cordell Antunez MD Cardiology:Pt had so me dizziness and falls in December and Metoprolol was reduced to 50mg BID. He is still bradycardic however less symptomatic. Will reduce Metoprolol to 25mg BID and may consider stopping it completely. Cordell Antunez MD Cardiology Joshua sarmiento Cardiology:BP today: 169/62 P rior BP: 129/60 (03/23/2014) Joshua Tripp Cardiology:He had an echo today, results pending. WIll obtain echo and f/u in one year. Joshua Tripp Cardiology:No new symptoms. No c hest pain or SOB. Cordell Antunez MD Date Name PROTHROMBIN TIME WIT H INR LIPID PANEL CBC (INCLUDES DIFF/P LT) BASIC METABOLIC PANE L W/EGFR Cardiac Cath - Left - [facility] STR - Adenosine Complete Echo Complete Echo Complete Echo Complete Echo Carotid Duplex Bilat eral Complete Echo STR - Nuclear HISTORY OF PROCEDURES Procedure Date Procedure Name Provider Procedure Notes S tatus EKG Cordell Antunez MD completed SNOMED-CT: 106073920 156393 Current Medications Documented Cordell Antunez MD completed SNOMED-CT: 938359373 347602 Current Medications Documented Cordell Antunez MD completed Stress EKG Kelby Aguila MD completed Regadenoson, 4 units Gunjan Mercedes MD completed Cardiolite, 2 units Gunjan Mercedes MD completed SPECT Images Gunjan Mercedes MD complet ed EKG Cordell Antunez MD completed SNOMED-CT: 489660130 250310 Current Medications Documented Cordell Antunez MD completed EKG Cordell Antunez MD completed SNOMED-CT: [id number] 651874 Current Medications Documented Cordell Antunez MD completed SNOMED-CT: 153755552 Smoking Cessation Counseling Cordell Antunez MD completed SNOMED-CT: 34886974 Physical Exam, Performed: Pulse Exam of Foot Cordell Antunez MD completed EKG Cordell Antunez MD completed SNOMED-CT: 234794831 053158 Current Medications Documented Cordell Antunez MD completed EKG Cordell Antunez MD completed
--- OUTSIDE RECORDS SUMMARY | 2024-08-28 20:40 | XMS_ITS | Referral Summary ---
Author Organization [facility] Address [address] [place] [address] Care Team Providers Care Wallpaper Printer Helper Name Role Phone Chester Arias MD Primary Care Provider Allergies Active Allergy Reactions Criticality Noted Date Comments Ketorolac Rash Medium 11/12/2020 Niacin Rash Medium 11/12/2020 Medications benzonatate (TESSALON) 100 mg capsule every 8 hours Activ e cyanocobalamin (Vitamin B-12) 1,000 mcg/mL injection cyanocobalamin (vit B-12) 1,000 mcg/mL injection solution . 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 Take 1 tablet (10 mg total) by mouth nightly 30 tablet 3 09/13/19 22 Active escitalopram (LEXAPRO) 10 mg tablet TAKE 1 TABLET BY MOUTH EVERY DAY 90 tablet 3 01/09/20 22 Active donepeziL (ARICEPT) 10 mg tabletIndicatio ns: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 180 tablet 2 08/06/19 23 Active cetirizine (ZyrTEC) 10 mg tablet Take 1 tablet (10 mg total) by mouth daily 05/24/20 22 Active oxybutynin XL (DITROPAN-XL) 5 mg 24 hr tablet Take 1 tablet (5 mg total) by mouth nightly 08/23/19 23 Active cefdinir (OMNICEF) 300 mg capsule Take 1 capsule (300 mg total) by mouth 2 (two) times a day 09/05/19 23 Active traZODone (DESYREL) 50 mg tablet TAKE 1/2 TABLET BY MOUTH NIGHTLY 45 tablet 3 09/12/19 23 Active ClearLax 17 gram/dose powder 09/30/19 23 Active doxycycline hyclate 100 mg capsule 09/30/19 23 Active cranberry 400 mg capsule 10/07/19 23 Active amLODIPine (NORVASC) 5 mg tablet 09/30/19 23 Active memantine XR (NAMENDA XR) 28 mg capsule,sprinkl e,ER 24hrIndications :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 He is currently using a combination of donepezil and memantine for cognitive loss as well as quetiapine for agitation. He is now receiving some behavioral therapy as well. He may ultimately be best served by placement if his behaviors continue to worsen. I have renewed all 3 medications including donepezil, memantine, and quetiapine. I will see him back in the office in 1 year. 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 Gender Identity Not on file Sexual Orientation Not on file Last Filed Vital Signs Vital Sign Reading Time Taken Comments Blood Pressure 140/71 02/12/2024 11:39 AM CDT Pulse 62 02/12/2024 11:39 AM CDT Temperature 36.9 C (98.4 F) 08/09/2023 1:36 PM SENIOR WEB DEVELOPER Respiratory Rate 17 06/01/2021 5:05 AM SENIOR WEB DEVELOPER Oxygen Saturation 96% 08/09/2023 1:36 PM SENIOR WEB DEVELOPER Inhaled Oxygen Concentration - - Weight 78.9 kg (174 lb) 02/12/2024 11:39 AM CDT Height 170.2 cm (5' 7 ) 02/12/2024 11:39 AM CDT Body Mass Index 27.25 02/12/2024 11:39 AM CDT Plan of Treatment Not on file Insurance MEDICARE [facility] MEDICARE MEDICARE [facility] FEDERAL Advance Directives For more information, please contact: [phone] * LIMITED - No CPR (Latest Code Status on File) Date Activated Date Inactivated Comments 05/30/2021 1:01 PM 06/01/2021 4:33 PM Question Answer Comments Provide aggressive medical m anagement before a full cardiopulmonary arrest occurs. Use antibiotics, IV Fluids, and medical treatment unless specifically selected below: No intubation * Full Code Date Activated Date Inactivated Comments 05/29/2021 7:05 PM 05/30/2021 1:01 PM Healthcare Agents on File Name Relationship Healthcare Agent [facility] p Communication Tito Turner Count Includes [facility] Health Care Agent Care Teams Wallpaper Printer Helper Relationship Specialty Start Date End Date Chester Arias MD [address] [facility] [address] [address] PCP - General Internal Medicine 09/22/20
--- OUTSIDE RECORDS SUMMARY | 2024-08-28 20:40 | XMS_ITS | Clinical Summary ---
Author Organization [facility] Address [address] [place] [address] Care Team Providers Care Fire Fighters Dispatcher Name Role Phone Chester Arias MD Primary [...] back in the office in 1 year. 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 Gender Identity Not on file Sexual Orientation Not on file Obstetrics History Last Filed Vital Signs Vital Sign Reading Time Taken Comments Blood Pressure 140/71 02/12/2024 11:39 AM CDT Pulse 62 02/12/2024 11:39 AM CDT Temperature 36.9 C (98.4 F) 08/09/2023 1:36 PM FIBREGLASS LAMINATOR Respiratory Rate 17 06/01/2021 5:05 AM FIBREGLASS LAMINATOR Oxygen Saturation 96% 08/09/2023 1:36 PM FIBREGLASS LAMINATOR Inhaled Oxygen Concentration - - Weight 78.9 kg (174 lb) 02/12/2024 11:39 AM CDT Height 170.2 cm (5' 7 ) 02/12/2024 11:39 AM CDT Body Mass Index 27.25 02/12/2024 11:39 AM CDT Plan of Treatment Health Maintenance Due Date Last Done Comments Depression Screening 1938 Fall Risk Assessment 1940 DTaP/Tdap/Td Vaccine (1 - Tdap) 1949 Hepatitis B Screening 02/15/1956 Zoster Vaccine (1 of 2) 02/15/1988 Well Visit 65+ 2003 Influenza Vaccine (#1) 2024 3, 04/24/2019, 03/07/2018, Additional history exists Pneumococcal vaccine 65+ Completed 03/13/2018, 08/09 Insurance MEDICARE [facility] MEDICARE MEDICARE [facility] FEDERAL Advance Directives For more information, please contact: [phone] * LIMITED - No CPR (Latest Code [...] Agents on File Name Relationship Healthcare Agent Relationshi p Communication Tito Turner [facility] Agent Care Teams Fire Fighters Dispatcher Relationship Specialty Start Date End Date Chester Arias MD [address] [facility] [address] [place], [place] [id number] PCP - General Internal Medicine 09/22/20
--- NOTE | 2024-08-28 21:10 | ED.GENADULT ---
HPI - General Adult General Chief complaint: Fall Stated complaint: fall Time Seen by Provider: 08/28/24 19:41 History of Present Illness HPI narrative: Patient 84-year-old gentleman who presents emergency department with chief complaint of fall patient is resident of a local memory care facility and was found laying on the floor the patient has no complaints otherwise does report that he hurts whenever he has moved Related Data Home Medications ?Medication ?Instructions ?Recorded ?Confirmed ?Last Taken ?Type acetaminophen 500 mg tablet 500 mg PO TID PRN Pain 03/11/24 03/11/24 Unknown History amlodipine 5 mg tablet 5 mg PO DAILY 03/11/24 03/11/24 Unknown History divalproex 125 mg tablet,delayed 125 mg PO BID 03/11/24 03/11/24 Unknown History release donepezil 10 mg tablet 10 mg PO DAILY 03/11/24 03/11/24 Unknown History escitalopram oxalate 10 mg tablet 10 mg PO DAILY 03/11/24 03/11/24 Unknown History furosemide 40 mg tablet 40 mg PO DAILY 03/11/24 03/11/24 Unknown History levothyroxine 75 mcg tablet 75 mcg PO DAILY 03/11/24 03/11/24 Unknown History loperamide 2 mg capsule 2 mg PO DAILY PRN Diarrhea 03/11/24 03/11/24 Unknown History menthol 0.44 %-zinc oxide 20.6 % 1 applic topical BID PRN Rash 03/11/24 03/11/24 Unknown History topical ointment (CalProtect) metolazone 2.5 mg tablet 2.5 mg PO DAILY 03/11/24 03/11/24 Unknown History omeprazole 40 mg capsule,delayed 40 mg PO DAILY 03/11/24 03/11/24 Unknown History release polyethylene glycol 3350 17 17 g PO DAILY PRN Constipation 03/11/24 03/11/24 Unknown History gram/dose oral powder quetiapine 50 mg tablet 50 mg PO TID 03/11/24 03/11/24 Unknown History tamsulosin 0.4 mg capsule 0.4 mg PO QHS 03/11/24 03/11/24 Unknown History triamcinolone acetonide 0.1 % 1 applic topical BID 03/11/24 03/11/24 Unknown History topical cream Allergies Allergy/AdvReac Type Severity Reaction Status Date / Time aspirin Allergy Unknown Verified 08/28/24 19:42 niacin Allergy Unknown Verified 08/28/24 19:42 [facility] Past Medical History Medical History Bipolar disorder Cataracts, bilateral TIA (transient ischemic attack) History of dementia History of hypothyroidism History of hypertension Surgical History Surgical History History of total hip arthroplasty History of angioplasty (1993) Social History Social History Smoking status: Never smoker Alcohol intake: former Substance use: never Spiritual care concerns: No Exam Narrative: GENERAL: Well-appearing, well-nourished, and in no acute distress. HEAD: Normocephalic, atraumatic. EYES: PERRLA and EOMI. ENT: Nares clear, no rhinorrhea or epistaxis. Mucous membranes moist. NECK: Supple. CHEST: Clear to auscultation. No respiratory distress. HEART: Regular rate and rhythm. No murmur heard. Normal peripheral pulses. ABDOMEN: Soft, nontender, nondistended, normal active bowel sounds. Back: Pain with movement of the back no bony step-off noted EXTREMITIES: Normal range of motion. No edema. SKIN: Warm, dry, no rash. NEURO: No focal deficits. Alert and confused PSYCH: Normal mood and affect. Course Vital Signs Vital signs: Vital Signs Temperature 36.7 C 08/28/24 19:34 Pulse Rate 73 08/28/24 19:34 Respiratory Rate 20 08/28/24 19:34 Blood Pressure 146/56 H 08/28/24 19:34 Pulse Oximetry 97 08/28/24 19:34 Oxygen Delivery Room Air 08/28/24 19:34 Temperature 36.5 C 08/28/24 21:22 Pulse Rate 74 08/28/24 21:22 Respiratory Rate 20 08/28/24 21:22 Blood Pressure 156/68 H 08/28/24 21:22 Pulse Oximetry 100 08/28/24 21:22 Oxygen Delivery Room Air 08/28/24 19:34 Medical Decision Making MDM Narrative Medical decision making narrative: Differential diagnosis includes head injury, cervical spine fracture, intrathoracic or intra-abdominal trauma CT head CT C-spine and CT chest abdomen pelvis showed no evidence of traumatic injury In discussion with the family the patient normally ambulates with a wheelchair Vital Signs Vital Signs: Vital Signs Temperature 36.7 C 08/28/24 19:34 Pulse Rate 73 08/28/24 19:34 Respiratory Rate 20 08/28/24 19:34 Blood Pressure 146/56 H 08/28/24 19:34 Pulse Oximetry 97 08/28/24 19:34 Oxygen Delivery Room Air 08/28/24 19:34 Temperature 36.5 C 08/28/24 21:22 Pulse Rate 74 08/28/24 21:22 Respiratory Rate 20 08/28/24 21:22 Blood Pressure 156/68 H 08/28/24 21:22 Pulse Oximetry 100 08/28/24 21:22 Oxygen Delivery Room Air 08/28/24 19:34 Discharge Plan Discharge Clinical Impression: Ground-level fall, Back contusion Patient Disposition: CA Alf/Asst Living Condition: Stable Instructions: Antibiotic Form, Contusion in Adults (ED) Patient Language: Italian Prescriptions: No Action donepezil 10 mg tablet 10 mg PO DAILY amlodipine 5 mg tablet 5 mg PO DAILY acetaminophen 500 mg Tablet 500 mg PO TID PRN (Reason: Pain) Rx Instructions: Give 1-2 tabs TID PRN divalproex 125 mg tablet,delayed release (DR/EC) 125 mg PO BID furosemide 40 mg tablet 40 mg PO DAILY metolazone 2.5 mg tablet 2.5 mg PO DAILY loperamide 2 mg capsule 2 mg PO DAILY PRN (Reason: Diarrhea) Rx Instructions: 1-2 capsules po daily PRN omeprazole 40 mg capsule,delayed release(DR/EC) 40 mg PO DAILY triamcinolone acetonide 0.1 % cream 1 applic TOPICAL BID Rx Instructions: Apply to affected areas- groin levothyroxine 75 mcg tablet 75 mcg PO DAILY tamsulosin 0.4 mg capsule 0.4 mg PO QHS polyethylene glycol 3350 17 gram/dose Powder 17 g PO DAILY PRN (Reason: Constipation) escitalopram oxalate 10 mg tablet 10 mg PO DAILY quetiapine 50 mg tablet 50 mg PO TID menthol-zinc oxide [CalProtect] 0.44-20.6 % Ointment 1 applic TOPICAL BID PRN (Reason: Rash) Rx Instructions: Apply to groin PRN guaifenesin [Mucus Relief ER] 600 mg Tablet Extended Release 12hr 600 mg PO Q12HR Qty: 30 0RF azithromycin 250 mg tablet 250 mg PO DAILY Qty: 3 0RF amoxicillin-pot clavulanate 875-125 mg tablet 1 tablet PO Q12H Qty: 7 0RF Follow-up/Referrals: Hugo,Chester Diehl MD [Primary Care Provider] - Time of Disposition: 21:28
--- NOTE | 2024-08-28 21:15 | PC.NURSE ---
5-SPOKE WITH PATIENT'S FAMILY MEMBER WHO STATES PATIENT ONLY WALKS WITH ASSISTANCE OF PHYSICAL THERAPIST USING GAIT BELT AND HOLDING ONTO WHEELCHAIR. FAMILY MEMBER STATES PATIENT DOES NOT JUST GET UP AND WALK AROUND .
[2024-08-28 21:22] VITALS: BP 156/68; PULSE 74; RESP 20; TEMP 36.5; O2SAT 100
--- NOTE | 2024-08-28 23:00 | PC.NURSE ---
[facility] [facility] [place] REPORT CALLED TO DELIO AT FACILITY.
== END 2024-08-28 22:45 ==
PROVIDERS: Emergency Provider Emergency Medicine; PCP Internal Medicine
DX: S20.229A Contusion of unspecified back wall of thorax, initial encounter (principal); W18.30XA Fall on same level, unspecified, initial encounter; F31.9 Bipolar disorder, unspecified; E03.9 Hypothyroidism, unspecified; I10 Essential (primary) hypertension; F03.90 Unspecified dementia, unspecified severity, without behavioral disturbance, psychotic disturbance, mood disturbance, and anxiety; Z86.73 Personal history of transient ischemic attack (TIA), and cerebral infarction without residual deficits; Z96.649 Presence of unspecified artificial hip joint
CPT/HCPCS: 70450; 71250; 72125; 72128; 72131; 74176; 99284